=== PATIENT | female | born 1950 | race Caucasian/White ===

== ENCOUNTER 2020-09-06 10:04 | Outpatient (REF) | payer MEDICARE, SELFPAY | END 2020-09-06 10:05 | disposition home or self-care (01) | LOC: HO.LAB 10:04 | PROVIDERS: Visit Provider Internal Medicine | DX: Z20.828 Contact with and (suspected) exposure to other viral communicable diseases (principal) | CPT/HCPCS: U0003 ==

== ENCOUNTER 2020-11-15 10:16 | Outpatient (REF) | payer MEDICARE, SELFPAY | END 2020-11-15 10:17 | disposition home or self-care (01) | LOC: HO.LAB 10:16 | PROVIDERS: PCP Internal Medicine; Visit Provider Advanced Practice Midwife | DX: Z01.419 Encounter for gynecological examination (general) (routine) without abnormal findings (principal); Z80.3 Family history of malignant neoplasm of breast | CPT/HCPCS: 88305 ==

== ENCOUNTER → 2020-11-18 10:15 | Outpatient (BNVA) | payer MEDICARE, SELFPAY | PROVIDERS: Visit Provider Obstetrics & Gynecology | DX: Z01.419 Encounter for gynecological examination (general) (routine) without abnormal findings (principal) | CPT/HCPCS: 99212 ==

== ENCOUNTER 2020-12-13 18:27 | Emergency (ER) | payer MEDICARE, SELFPAY ==
--- NOTE | ~2020-12-13 | CT_ITS ---
EXAMINATION: CT HEAD WITHOUT CONTRAST CLINICAL INFORMATION: TIA COMPARISON: None TECHNIQUE: Contiguous axial imaging was performed from the skull base to vertex without intravenous administration of contrast. This CT examination was performed using dose optimization techniques as appropriate, variously including the following: *Automated exposure control *Adjustment of mA and/or kV according to patient size (this includes techniques or standardized protocols for targeted exams where dose is matched to indication/reason for exam; i.e. extremities or head) *Use of iterative reconstruction technique DLP: 556 mGy-cm FINDINGS: There is no evidence of acute intracranial hemorrhage or territorial infarction. No abnormal mass effect or midline shift is seen. Bai to white matter differentiation is well preserved. No extra-axial fluid collections are identified. The ventricles are normal in size. There is no abnormal attenuation within the brain parenchyma. The osseous structures and soft tissues are normal. The mastoid air cells and visualized portions of the paranasal sinuses are well aerated. CT/CT head/brain wo con IMPRESSION: No acute intracranial pathology.
--- NOTE | ~2020-12-13 | XR_ITS ---
EXAMINATION: XR CHEST CLINICAL INFORMATION: TIA COMPARISON: 02/03/2010 TECHNIQUE: Frontal view of the chest was obtained. FINDINGS: No significant abnormality is noted involving the heart, lungs or mediastinum. Degenerative changes are present in the left shoulder which appear increased when compared to 2009. XR/XR chest 1V IMPRESSION: No acute intrathoracic disease.
[2020-12-13 18:30] VITALS: BP 143/76; PULSE 83; RESP 18; TEMP 36.9; O2SAT 98; BMI 29.1
--- NOTE | 2020-12-13 18:55 | ECG_ITS ---
Test Reason : DIZZY Blood Pressure : / mmHG Vent. Rate : 073 BPM Atrial Rate : 073 BPM P-R Int : 196 ms QRS Dur : 092 ms QT Int : 380 ms P-R-T Axes : 038 -16 015 degrees QTc Int : 418 ms Normal sinus rhythm Normal ECG When compared with ECG of 04-MAY-2015 11:16, Borderline criteria for Inferior infarct are no longer Present Referred By: Kelly Lang Electronically Signed By:SUZAN RODRIGUEZ
--- NOTE | 2020-12-13 18:57 | ED.EYEPROB ---
HPI - Eye Problem General Chief complaint: Neuro Symptoms/Deficit Stated complaint: double vision Time Seen by Provider: 12/13/20 18:54 Source: patient Mode of arrival: ambulatory Limitations: no limitations History of Present Illness HPI Narrative: 70 years old female walked in after having 5 minutes of double vision only on her left eye, symptoms started about 3 hours ago, lasted for about 5 minutes, only affecting left eye, no symptoms now, patient felt slight headache around her left eye that also resolved now, nothing relieved her symptoms, nothing would worsen her symptoms. Patient has no symptoms now. Patient has been examined by an eye doctor for seeing spots on the left eye, reportedly by the patient was told nothing to worry about. Related Data Home Medications Medication Instructions Recorded Confirmed omeprazole magnesium 20 mg 20 mg PO DAILY 11/15/20 11/18/20 tablet,delayed release Allergies Allergy/AdvReac Type Severity Reaction Status Date / Time morphine [MORPHINE] AdvReac Intermediate VOMITING Verified 12/13/20 18:45 oxycodone [OXYCODONE] AdvReac Intermediate VOMITING Verified 12/13/20 18:45 Opioids - Morphine Analogues AdvReac Vomiting Verified 12/13/20 18:45 Review of Systems Review of Systems: All other systems are reviewed and are negative Constitutional: Reports as per HPI and Reports no additional constitutional complaints Eyes: Reports as per HPI and Reports no additional eye complaints Reports system reviewed and no additional complaints, except as documented Cardiovascular: Reports as per HPI and Reports no additional cardiovascular complaints Respiratory: Reports as per HPI and Reports no additional respiratory complaints Gastrointestinal: Reports as per HPI and Reports no additional gastrointestinal complaints Genitourinary: Reports no additional female genitourinary complaints Musculoskeletal: Reports no additional musculoskeletal complaints Skin/Breast: Reports system reviewed and no additional complaints, except as docu Psychiatric: Reports no additional psychiatric complaints Endocrine: Reports no additional endocrine complaints Hematologic/Lymphatic: Reports no additional hematologic/lymphatic complaints Allergic/Immunologic: Reports no additional allergic/immunologic complaints Reports system reviewed and no additional complaints, except as documented and Reports Abnormal speech present [facility] Past Medical History Medical History Acid reflux Surgical History H/O: hysterectomy History of bladder surgery History of hip replacement Hx of tubal ligation Family History Family History Mother Breast cancer Maternal Aunt Breast cancer Social History Social History Smoked in Last 30 Days: No Use of substances other than those prescribed or required for medical reasons: No Advance Directives: No Advance Directives Information Provided: No Physical Exam Vital Signs: Vital Signs: Last Vital Signs Temp 98.5 F 12/13/20 18:30 Pulse 83 12/13/20 18:30 Resp 18 12/13/20 18:30 BP 143/76 H 12/13/20 18:30 Pulse Ox 98 12/13/20 18:30 Body Mass Index 29.1 Vital signs have been reviewed as normal and appeared to be correct. Blood pressure in the high range. Heart rate normal. Respiration rate normal. Temperature normal. Oxygen saturation normal. Appearance: Alert. Oriented X3. No acute distress. Head: Normal external exam. Normocephalic. Atraumatic. No Atkins signs noted. No raccoon eyes noted Eyes: PERRLA. EOMI. Conjunctiva and sclera normal. Eyelids normal. ENT: EAC normal. TM's Normal. Pharynx normal. Uvula midline. Moist mucous membranes. No trismus noted. No drooling noted. No muffled voice noted. Neck: Normal inspection. Neck supple. FROM. No adenopathy. Thyroid Normal. No meningeal signs. No neck mass noted. CVS: Normal heart rate and rhythm. Heart sound normal. No murmurs noted. Pulses normal throughout. Respiratory: No respiratory distress. Painless inspiration. Breath sounds normal. No wheezes/rales/rhonchi noted. Chest nontender. No accessory muscle usage noted or decreased air movement noted. Abdomen: Soft and nontender. Bowel sounds normal in all 4 quadrants. No distention noted. No organomegaly noted. No visible injury noted. Back: No CVA tenderness. Full range of motion noted. Skin: Skin warm and dry. Normal skin color. Normal skin turgor. No rashes/lesions/lacerations noted. Extremities: No lower extremity edema. Extremities exhibit normal range of motion. Extremities nontender. Neuro: Oriented X 3. No motor deficit. No sensory deficit. Reflexes normal. Eyes: General: appearance normal, both eyes and all related structures (Visual acuity on the right 20/25, left 20/25.) Visual Escalante: normal visual escalante by confrontation Alignment and Position: alignment normal Periorbital: periorbital findings normal Eyelids: Yes eyelids normal Conjunctivae: conjunctivae normal Sclerae: sclerae normal Corneas: corneas normal Pupils: Equal, round and reactive pupils present and Pupils normal by confrontation EOM: EOMs intact bilaterally Direct Ophthalmoscopy: normal light reflex, no photophobia, no papilledema, fundi normal bilaterally and anterior chamber abnormal Neuro: Cranial nerves: Yes Equal, round and reactive pupils present Course Course Course Narrative: 70-year-old female presented after having 5 minutes of left thigh diplopia that is resolved, patient has unremarkable eye exam. Normal neuro exam, normal head CT, unremarkable labs. Patient was instructed to follow up with eye doctor. MDM - Eye Problem Lab Data Attestation: I reviewed the patient's lab results. Result diagrams: 12/13/20 19:17 12/13/20 19:17 Labs: Lab Results 12/13/20 12/13/20 12/13/20 Range/Units 19:17 19:17 19:17 WBC 9.2 (4.8-10.8) X10*3/uL RBC 5.12 (4.20-5.50) X10*6/uL Hgb 15.2 (12.0-16.0) g/dl Hct 46.1 (37-47) % MCV 90.0 (80-98) fL MCH 29.7 (27.0-33.0) pg MCHC 33.0 (31.0-35.0) g/dl RDW 12.6 (11.0-16.0) % Plt Count 244 (160-400) X10*3/uL MPV 9.7 (9.4-12.3) fL Immature Gran % (Auto) 0.3 (0.0-0.4) % Neut % (Auto) 74.8 H (45-73) % Lymph % (Auto) 18.0 L (20-40) % Freestone % (Auto) 6.1 (2-11) % Eos % (Auto) 0.5 (0-4) % Baso % (Auto) 0.3 (0-2) % Lymph # (Auto) 1.7 (1.2-4.9) X10*3/uL Freestone # (Auto) 0.6 (0.1-1.2) X10*3/uL Eos # (Auto) 0.1 (0.0-0.4) X10*3/uL Baso # (Auto) 0.0 (0.0-0.2) X10*3/uL Abs Immat Gran (auto) 0.03 (0.00-0.03) X10*3/uL Absolute Neuts (auto) 6.9 (2.0-8.3) X10*3/uL Absolute Nucleated RBC 0.000 (0.0-0.012) X10*3/uL Nucleated RBC % (auto) 0.0 (0.0-0.2) /100WBC Sodium 139 (135-145) mmol/L Potassium 4.2 (3.3-5.1) mmol/L Chloride 104 (96-108) mmol/L Carbon Dioxide 26 (22-29) mmol/L Anion Gap 13 (12-20) BUN 16 (9-16) mg/dL Creatinine 0.79 (0.5-1.4) mg/dL Estim Creat Clear Calc 70.9 Estimated GFR > 60 Random Glucose 98 (60-115) mg/dL Calcium 9.3 (8.4-10.2) mg/dL Troponin I High Sens < 3.5 (<3.5-17.0) ng/L Urine Color Urine Appearance Urine pH (5.0-8.0) Ur Specific [place] (1.005-1.025) Urine Protein (NEG-TRACE) MG/DL Urine Glucose (UA) (NEG) MG/DL Urine Ketones (NEG) MG/DL Urine Blood (NEG) Urine Nitrite (NEG) Ur Leukocyte Esterase (NEG) Urine RBC (0) /HPF Urine WBC (0-4) /HPF Ur Squamous Epith Cells /LPF Urine Bacteria /LPF 12/13/20 Range/Units 19:23 WBC (4.8-10.8) X10*3/uL RBC (4.20-5.50) X10*6/uL Hgb (12.0-16.0) g/dl Hct (37-47) % MCV (80-98) fL MCH (27.0-33.0) pg MCHC (31.0-35.0) g/dl RDW (11.0-16.0) % Plt Count (160-400) X10*3/uL MPV (9.4-12.3) fL Immature Gran % (Auto) (0.0-0.4) % Neut % (Auto) (45-73) % Lymph % (Auto) (20-40) % Freestone % (Auto) (2-11) % Eos % (Auto) (0-4) % Baso % (Auto) (0-2) % Lymph # (Auto) (1.2-4.9) X10*3/uL Fre[place] # (Auto) (0.1-1.2) X10*3/uL Eos # (Auto) (0.0-0.4) X10*3/uL Baso # (Auto) (0.0-0.2) X10*3/uL Abs Immat Gran (auto) (0.00-0.03) X10*3/uL Absolute Neuts (auto) (2.0-8.3) X10*3/uL Absolute Nucleated RBC (0.0-0.012) X10*3/uL Nucleated RBC % (auto) (0.0-0.2) /100WBC Sodium (135-145) mmol/L Potassium (3.3-5.1) mmol/L Chloride (96-108) mmol/L Carbon Dioxide (22-29) mmol/L Anion Gap (12-20) BUN (9-16) mg/dL Creatinine (0.5-1.4) mg/dL Estim Creat Clear Calc Estimated GFR Random Glucose (60-115) mg/dL Calcium (8.4-10.2) mg/dL Troponin I High Sens (<3.5-17.0) ng/L Urine Color YELLOW Urine Appearance CLEAR Urine pH 5.5 (5.0-8.0) Ur Specific [place] 1.020 (1.005-1.025) Urine Protein NEG (NEG-TRACE) MG/DL Urine Glucose (UA) NEG (NEG) MG/DL Urine Ketones NEG (NEG) MG/DL Urine Blood 1+ H (NEG) Urine Nitrite NEG (NEG) Ur Leukocyte Esterase 1+ H (NEG) Urine RBC 0-2 (0) /HPF Urine WBC 0-2 (0-4) /HPF Ur Squamous Epith Cells 1+ /LPF Urine Bacteria 1+ /LPF Imaging Data CT scan - head: Radiologist's impression: No acute pathology. Discharge Plan Discharge Clinical Impression: Diplopia Patient Disposition: Home, Self-Care Instructions: Diplopia (ED) Additional Instructions: See your eye doctor. Prescriptions: No Action omeprazole magnesium [Prilosec OTC] 20 mg tablet,delayed release (DR/EC) 20 mg PO DAILY RF: 0 Referrals: Hemal Suarez MD, DO [Primary Care Provider] - 2 days
--- NOTE | 2020-12-13 19:20 | PC.NURSE ---
ASSUMED CARE OF PT. PT RESTING IN STRETCHER. LABS DRAWN TO LAB. PT UP TO RESTROOM AMBULATORY WITH STEADY EVEN GAIT FOR URINE SAMPLE TO LAB. PT ALERT, RESPIRATIONS EASY, N/L. PT C/O HEADACHE AND DENIES VISION DIFFICULTY. PT AWAITING FOR VISUAL ACCUITY. WILL CONTINUE TO MONITOR PT.
[2020-12-13 19:26] LABS: MANUAL DIFF FLAG NO
[2020-12-13 19:27] LABS: Basophils Percent Auto 0.3 % (0-2); Eosinophils Absolute Auto 0.1 X10*3/uL (0.0-0.4); Eosinophils Percent Auto 0.5 % (0-4); Hematocrit 46.1 % (37-47); Hemoglobin 15.2 g/dl (12.0-16.0); Imm Gran Abs Auto 0.03 X10*3/uL (0.00-0.03); Imm Gran Pct Auto 0.3 % (0.0-0.4); Lymphocytes Absolute Auto 1.7 X10*3/uL (1.2-4.9); Mean Corpuscular Hemoglobin 29.7 pg (27.0-33.0); Mean Platelet Volume 9.7 fL (9.4-12.3); Monocytes Absolute Auto 0.6 X10*3/uL (0.1-1.2); Monocytes Percent Auto 6.1 % (2-11); Neutrophils Absolute Auto 6.9 X10*3/uL (2.0-8.3); Neutrophils Percent Auto 74.8 % (45-73); Platelet Count 244 X10*3/uL (160-400); Red Blood Count 5.12 X10*6/uL (4.20-5.50); Red Cell Distribution Width 12.6 % (11.0-16.0); White Blood Count 9.2 X10*3/uL (4.8-10.8)
[2020-12-13 19:32] LABS: Appearance Urine CLEAR; Color Urine YELLOW; Glucose Urine UA NEG (NEG); Leukocyte Esterase Urine 1+ (NEG); Nitrite Urine NEG (NEG); PH 5.5 (5.0-8.0); UACC Culture Trigger YES; Urine Blood 1+ (NEG); Urine Ketones NEG (NEG); Urine Protein NEG (NEG-TRACE)
[2020-12-13 19:38] LABS: Bacteria Urine 1+ /LPF; RBC Urine 0-2 /HPF (0); Squamous Epithelial Cell Urine 1+ /LPF; WBC Urine 0-2 /HPF (0-4)
[2020-12-13 19:47] LABS: Anion Gap 13 (12-20); Blood Urea Nitrogen 16 mg/dL (9-16); Calcium 9.3 mg/dL (8.4-10.2); Carbon Dioxide 26 mmol/L (22-29); Chloride 104 mmol/L (96-108); Creatinine Clr Calc Pharmacy 70.9; Estimated Glomerular Filt Rate > 60; Glucose Random 98 mg/dL (60-115); Potassium 4.2 mmol/L (3.3-5.1); Sodium 139 mmol/L (135-145)
[2020-12-13 19:55] LABS: Troponin-I High Sensitivity < 3.5 ng/L (<3.5-17.0)
== END 2020-12-13 20:57 | disposition home or self-care (01) ==
PROVIDERS: Emergency Provider Emergency Medicine; PCP Internal Medicine
DX: H53.2 Diplopia (principal); R51.9 Headache, unspecified; Z79.899 Other long term (current) drug therapy
CPT/HCPCS: 36415; 70450; 71045; 80048; 81001; 81003; 84484; 85025; 87086; 93005; 99284

== ENCOUNTER 2020-12-20 09:44 | Outpatient (REF) | payer MEDICARE, SELFPAY ==
--- NOTE | ~2020-12-20 | US_ITS ---
EXAMINATION: US EXTRACRANIAL CAROTID DUPLEX, BILATERAL CLINICAL INFORMATION: This is a 70-year-old female with diplopia. Carotid artery disease. COMPARISON: None TECHNIQUE: Real-time ultrasound and Doppler techniques (integrating B-mode 2-D vascular images, Doppler spectral analysis and color-flow Doppler imaging) were utilized to interrogate the extracranial carotid arteries, the vertebral arteries and proximal subclavian arteries bilaterally. The degree of stenosis is determined by criteria similar to NASCET. FINDINGS: Right Side: 1. There is minimal atherosclerotic plaque seen in the bifurcation/proximal ICA region. 2. The common carotid artery PSV proximally is 66 cm/s and distally 73 cm/s. 3. The proximal internal carotid artery velocities are 64 cm/s systolic and 16 cm/s diastolic. 4. The proximal external carotid artery PSV is 86 cm/s. 5. The vertebral artery shows antegrade flow. 6. The subclavian artery waveforms are normal. Left Side: 1. There is minimal atherosclerotic plaque seen in the bifurcation/proximal ICA region. 2. The common carotid artery PSV proximally is 160 cm/s and distally 85 cm/s. 3. The proximal internal carotid artery velocities are 60 cm/s systolic and 21 cm/s diastolic. 4. The proximal external carotid artery PSV is 102 cm/s. 5. The vertebral artery shows antegrade flow. 6. The subclavian artery waveforms are normal. US/US carotid duplex BI IMPRESSION: 1. RIGHT: Minimal, non-hemodynamically significant stenosis of the proximal right internal carotid artery corresponding to a 0-49% stenosis by velocity criteria. 2. LEFT: Minimal, non-hemodynamically significant stenosis of the proximal left internal carotid artery corresponding to a 0-49% stenosis by velocity criteria.
== END 2020-12-20 09:45 | disposition home or self-care (01) ==
LOC: HO.HMGCX 09:44
PROVIDERS: Visit Provider Internal Medicine
DX: H53.2 Diplopia (principal); R42 Dizziness and giddiness
CPT/HCPCS: 93880

== ENCOUNTER → 2021-01-20 09:19 | Outpatient (REF) | payer MEDICARE, SELFPAY ==
--- NOTE | 2021-01-20 09:30 | CA_ITS ---
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 Normal LV systolic function with grade 1 diastolic dysfunction 2. Normal cardiac valvular Doppler 3. Normal RV systolic pressure 4. No pericardial effusion Findings Procedure Information Contrast agent, definity, is being given per protocol without apparent complications. Left Ventricle Normal left ventricular size, thickness, and systolic function. The visually estimated ejection fraction is between 60-65%. Spectral Doppler is indicative of an impaired relaxation filling pattern. E/E prime ratio is <8, consistent with normal filling pressures. Evidence suggests grade I (mild) diastolic dysfunction. Right Ventricle Normal right ventricular cavity size and systolic function. Atria Both atria are normal in size. Interatrial shunt cannot be excluded. Aortic Valve The aortic valve structure and function is likely normal. There is no aortic valve stenosis. There is no aortic valve regurgitation. Mitral Valve Normal mitral valve structure and function. There is trace mitral valve regurgitation. There is no mitral valve stenosis. Pulmonic Valve The pulmonic valve was not well visualized. Tricuspid Valve Likely normal tricuspid valve structure and function. There is trace tricuspid valve regurgitation. The right ventricular systolic pressure is normal. The right ventricular systolic pressure is 23 mmHg. Normal right atrial pressure. There is no evidence of pulmonary hypertension. Great Vessels All visible segments of the aorta are normal in size. The pulmonary artery was not well visualized. Venous The inferior vena cava is normal in size and collapses greater than 50% with inspiration. Pericardium/Pleural There is no evidence of pericardial effusion. Prior Study Comparison No prior study available for comparison. Recommendations, Care & Conclusions Recommend contrast study to evaluate intracardiac shunting. Measurements 2D Linear Measurements Ao Root: 3.20 2.1-3.5 cm LVOT Diam: 2.20 3.0+(-)1.3 cm 2D Systolic Function EF 4C: 58.30 >55% EF 2C: 78.00 >55% Mitral Valve MV Pk E: 0.63 MV PK A: 0.74 MV Decel Time: 151.00 E/A: 0.80 E'Lateral: 8.12 E'Medial: 5.90 E/E' Med: 10.60 E/E' Lat: 7.70 PHT: 44.00 MVA PHT: 5.00 Decel Perkins: 4.13 Aortic Valve AoV Pk Ancelmo: 1.13 AoV Mn Ancelmo: 0.79 AoV VTI: 0.26 AoV Pk Grad: 5.00 Aov Mn Grad: 3.00 OPHELIA Cont.VTI: 2.65 LVOT LVOT Pk Ancelmo: 0.87 LVOT Mn Ancelmo: 0.58 LVOT VTI: 0.18 LVOT Pk Grad: 3.00 LVOT Mn Grad: 2.00 LVOT Diam: 2.20 LVOT Area: 3.80 Diastolic Function MV Pk E: 0.63 MV Pk A: 0.74 E/A: 0.80 E'Medial: 5.90 E/E' Med: 10.60 E' Laterial: 8.12 E/E' Lat: 7.70 Tricuspid Valve TR Pk Ancelmo: 2.21 TR Pk Grad: 20.00 RA Press: 3.00 RVSP: 23.00 Great Vessels Aorta Ao Root-2D: 3.20 2.0-3.7 cm Ao Asc: 3.20 2.1-3.4 cm Pulmonary Valve PV Pk Ancelmo: 0.88 Peak PV Grad: 3.00 Updated in Other Vendor System with Status of Final Ryan Vasquez MD electronically signed on 01/21/2021 3:37:59 PM with status of Final
== END ==
LOC: HO.CARD 09:19
PROVIDERS: PCP Internal Medicine; Visit Provider Internal Medicine
DX: H53.2 Diplopia (principal)
CPT/HCPCS: 93306; Q9957

== ENCOUNTER 2021-05-10 11:36 | Outpatient (REF) | payer MEDICARE, SELFPAY ==
--- NOTE | ~2021-05-10 | MM_ITS ---
EXAMINATION: MM SCREENING DIGITAL BREAST TOMOSYNTHESIS, BILATERAL CLINICAL INFORMATION: Screening. Asymptomatic. The lifetime risk of breast cancer based on the Tyrer-Cuzick Model is 9%. COMPARISON: Mammography: 05/04/2020, 02/16/2019, 02/04/2018, 11/07/2016 TECHNIQUE: Digital breast tomosynthesis is performed in both the craniocaudal and mediolateral oblique views along with computer-aided detection (CAD). Synthesized 2D images are generated from the tomosynthesis. FINDINGS: There are scattered areas of fibroglandular density (ACR BI-RADS breast composition Category b). There are no significant masses, abnormal calcifications, or other abnormalities. Parenchymal pattern is similar to prior studies. No developing density. The axilla and skin contours are unremarkable. MM/MM tomosynthesis screening BI IMPRESSION: No mammographic evidence of malignancy. ASSESSMENT: BI-RADS 1: Negative RECOMMENDATION: Routine annual mammography screening. This patient's information was entered into a reminder system with a target due date for their next mammogram.
== END 2021-05-10 11:37 | disposition home or self-care (01) ==
LOC: HO.MAMMO 11:36
PROVIDERS: PCP Internal Medicine; Visit Provider Internal Medicine
DX: Z12.31 Encounter for screening mammogram for malignant neoplasm of breast (principal)
CPT/HCPCS: 77063; 77067

== ENCOUNTER 2021-08-08 07:44 | Outpatient (REF) | payer MEDICARE, SELFPAY ==
[2021-08-08 11:52] LABS: MANUAL DIFF FLAG NO
[2021-08-08 11:59] LABS: Basophils Percent Auto 0.4 % (0-2); Eosinophils Absolute Auto 0.1 X10*3/uL (0.0-0.4); Eosinophils Percent Auto 1.8 % (0-4); Hematocrit 44.9 % (37-47); Hemoglobin 14.4 g/dl (12.0-16.0); Imm Gran Abs Auto 0.01 X10*3/uL (0.00-0.03); Imm Gran Pct Auto 0.2 % (0.0-0.4); Lymphocytes Absolute Auto 2.4 X10*3/uL (1.2-4.9); Lymphocytes Percent Auto 52.3 % (20-40); Mean Corpuscular HGB Conc 32.1 g/dl (31.0-35.0); Mean Corpuscular Hemoglobin 29.4 pg (27.0-33.0); Mean Corpuscular Volume 91.8 fL (80-98); Mean Platelet Volume 10.3 fL (9.4-12.3); Monocytes Absolute Auto 0.4 X10*3/uL (0.1-1.2); Monocytes Percent Auto 9.3 % (2-11); Neutrophils Absolute Auto 1.6 X10*3/uL (2.0-8.3); Platelet Count 277 X10*3/uL (160-400); Red Blood Count 4.89 X10*6/uL (4.20-5.50); Red Cell Distribution Width 13.2 % (11.0-16.0); White Blood Count 4.5 X10*3/uL (4.8-10.8)
[2021-08-08 12:19] LABS: Alanine Aminotransferase 13 U/L (0-31); Albumin Level 3.8 g/dL (3.5-5.0); Alkaline Phosphatase 46 U/L (39-117); Anion Gap 11 (12-20); Aspartate Amino Transferase 12 U/L (5-31); Bilirubin Total 0.7 mg/dL (0.0-1.0); Blood Urea Nitrogen 10 mg/dL (9-16); Calcium 8.8 mg/dL (8.4-10.2); Carbon Dioxide 27 mmol/L (22-29); Chloride 108 mmol/L (96-108); Cholesterol 188 mg/dL; Estimated Glomerular Filt Rate > 60; Glucose Fasting 89 mg/dL (60-99); HDL Cholesterol 59 mg/dL; LDL Cholesterol Calculated 113 mg/dl; Potassium 4.8 mmol/L (3.3-5.1); Sodium 141 mmol/L (135-145); Total Protein 6.3 g/dL (6.5-8.0); Triglycerides 81 mg/dL
[2021-08-08 12:42] LABS: Thyroid Stimulating Hormone 2.72 uIU/mL (0.32-4.0); Vitamin D 25-OH Total 21.8 ng/mL (>30)
== END 2021-08-08 07:45 | disposition home or self-care (01) ==
LOC: HO.HMGCLDS 07:44
PROVIDERS: PCP Internal Medicine; Visit Provider Internal Medicine
DX: K21.9 Gastro-esophageal reflux disease without esophagitis (principal); E78.00 Pure hypercholesterolemia, unspecified; E66.09 Other obesity due to excess calories; Z68.30 Body mass index [BMI] 30.0-30.9, adult
CPT/HCPCS: 36415; 80053; 80061; 82306; 84443; 85025

== ENCOUNTER 2021-10-05 15:18 | Outpatient (REF) | payer MEDICARE, SELFPAY | END 2021-10-05 15:19 | disposition home or self-care (01) | LOC: HO.LAB 15:18 | PROVIDERS: PCP Internal Medicine; Visit Provider Internal Medicine | DX: Z20.822 Contact with and (suspected) exposure to COVID-19 (principal) | CPT/HCPCS: C9803; U0003; U0005 ==

== ENCOUNTER 2021-12-06 08:10 | Outpatient (REF) | payer MEDICARE, SELFPAY ==
--- NOTE | ~2021-12-06 | XR_ITS ---
EXAMINATION: XR KNEE, RIGHT CLINICAL INFORMATION: Acute right knee pain COMPARISON: None TECHNIQUE: Four views of the right knee. FINDINGS: There is no evidence of acute fracture or dislocation of the right knee. No right knee effusion is appreciated. Medial lateral joint space compartments are maintained. There is spurring undersurface of the patella. There is a spur of the patella site of insertion of the quadriceps tendon. XR/XR knee RT 4V IMPRESSION: Patellofemoral joint degenerative change. No acute fracture or significant effusion.
== END 2021-12-06 08:11 | disposition home or self-care (01) ==
LOC: HO.HMGCX 08:10
PROVIDERS: Visit Provider Internal Medicine
DX: M25.561 Pain in right knee (principal)
CPT/HCPCS: 73564

== ENCOUNTER 2022-05-14 08:27 | Outpatient (REF) | payer MEDICARE, SELFPAY ==
--- NOTE | ~2022-05-14 | MM_ITS ---
EXAMINATION: MM SCREENING DIGITAL BREAST TOMOSYNTHESIS, BILATERAL CLINICAL INFORMATION: Screening. Asymptomatic. The lifetime risk of breast cancer based on the Tyrer-Cuzick Model is 7%. COMPARISON: Mammography: 05/10/2021, 05/04/2020, 02/16/2019 TECHNIQUE: Digital breast tomosynthesis is performed in both the craniocaudal and mediolateral oblique views along with computer-aided detection (CAD). Synthesized 2D images are generated from the tomosynthesis. FINDINGS: There are scattered areas of fibroglandular density (ACR BI-RADS breast composition Category b). There are no significant masses, abnormal calcifications, or other abnormalities. There is no significant change from prior studies. The axilla are unremarkable. MM/MM tomosynthesis screening BI IMPRESSION: No mammographic evidence of malignancy. ASSESSMENT: BI-RADS 1: Negative RECOMMENDATION: Routine annual mammography screening. This patient's information was entered into a reminder system with a target due date for their next mammogram.
== END 2022-05-14 08:28 | disposition home or self-care (01) ==
LOC: HO.MAMMO 08:27
PROVIDERS: Visit Provider Internal Medicine
DX: Z12.31 Encounter for screening mammogram for malignant neoplasm of breast (principal)
CPT/HCPCS: 77063; 77067

== ENCOUNTER 2022-06-14 11:41 | Outpatient (REF) | payer MEDICARE, SELFPAY ==
--- NOTE | ~2022-06-14 | XR_ITS ---
EXAMINATION: XR KNEE STANDING BILATERAL XR LEFT KNEE CLINICAL INFORMATION: Knee pain COMPARISON: Radiographs of the right knee from 12/06/2021 TECHNIQUE: AP standing view both knees Lateral and sunrise views of left knee FINDINGS: AP STANDING VIEW BOTH KNEES At the right knee, there are small marginal osteophytes at medial and lateral tibiofemoral compartments. Joint spaces are maintained. At the left knee, there is marginal osteophyte formation of the medial tibiofemoral compartment. The joint spaces are maintained. No suspicious bone lesion or fracture. LEFT KNEE: Small osteophytes at the patellofemoral joint. The patella is well-positioned within the trochlear groove. There appears to be mild narrowing of lateral patellofemoral joint space. No knee joint effusion. XR/XR knee LT 2V IMPRESSION: * Mild osteoarthritis of the patellofemoral and medial tibiofemoral compartments of the left knee. * Mild osteoarthritis of the visualized medial and lateral tibiofemoral compartments of the right knee.
--- NOTE | ~2022-06-14 | XR_ITS ---
EXAMINATION: XR PELVIS CLINICAL INFORMATION: Pain COMPARISON: 08/25/2015 TECHNIQUE: AP view of the pelvis. FINDINGS: No acute findings compared to 08/23/2015. Chronic moderate degenerative joint disease at the pubic symphysis (as manifest by subarticular sclerosis, the reticular cystic change and osteophyte formation). At the chronically degenerated left hip, there is mild narrowing of superior joint space and osteophyte formation. At the right hip, the prosthetic femoral head is well centered in the acetabular cup which exhibits normal lateral version. No osteolysis or fracture around the hardware. The degenerated lumbar spine is partially included in the [id number]. XR/XR pelvis 1-2V IMPRESSION: * No new radiographic abnormalities compared to 08/25/2015. * No evidence of complications involving the right total hip arthroplasty hardware. No hardware loosening or periprosthetic fracture. 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
--- NOTE | ~2022-06-14 | XR_ITS ---
EXAMINATION: XR KNEE STANDING BILATERAL XR LEFT KNEE CLINICAL INFORMATION: Knee pain COMPARISON: Radiographs of the right knee from 12/06/2021 TECHNIQUE: AP standing view both knees Lateral and sunrise views of left knee FINDINGS: AP STANDING VIEW BOTH KNEES At the right knee, there are small marginal osteophytes at medial and lateral tibiofemoral compartments. Joint spaces are maintained. At the left knee, there is marginal osteophyte formation of the medial tibiofemoral compartment. The joint spaces are maintained. No suspicious bone lesion or fracture. LEFT KNEE: Small osteophytes at the patellofemoral joint. The patella is well-positioned within the trochlear groove. There appears to be mild narrowing of lateral patellofemoral joint space. No knee joint effusion. XR/XR knee standing BI IMPRESSION: * Mild osteoarthritis of the patellofemoral and medial tibiofemoral compartments of the left knee. * Mild osteoarthritis of the visualized medial and lateral tibiofemoral compartments of the right knee.
== END 2022-06-14 11:42 | disposition home or self-care (01) ==
LOC: HO.HOSX 11:41
PROVIDERS: Visit Provider Orthopaedic Surgery
DX: M16.12 Unilateral primary osteoarthritis, left hip (principal); M25.562 Pain in left knee
CPT/HCPCS: 72170; 73560; 73565; 99202

== ENCOUNTER 2022-07-03 06:13 | Outpatient (REF) | payer MEDICARE, SELFPAY | END 2022-07-03 06:14 | disposition home or self-care (01) | LOC: HO.RADIR 06:13 | PROVIDERS: Visit Provider Anesthesiology | DX: M16.12 Unilateral primary osteoarthritis, left hip (principal); G89.29 Other chronic pain; M19.90 Unspecified osteoarthritis, unspecified site | CPT/HCPCS: 99202 ==

== ENCOUNTER 2022-08-06 07:50 | Outpatient (REF) | payer MEDICARE, SELFPAY ==
[2022-08-06 11:16] LABS: MANUAL DIFF FLAG NO
[2022-08-06 11:33] LABS: Basophils Percent Auto 0.4 % (0-2); Eosinophils Absolute Auto 0.1 X10*3/uL (0.0-0.4); Eosinophils Percent Auto 1.8 % (0-4); Hematocrit 45.8 % (37.0-47.0); Hemoglobin 14.7 g/dl (12.0-16.0); Imm Gran Abs Auto 0.01 X10*3/uL (0.00-0.03); Imm Gran Pct Auto 0.2 % (0.0-0.4); Lymphocytes Absolute Auto 2.3 X10*3/uL (1.2-4.9); Mean Corpuscular HGB Conc 32.1 g/dl (31.0-35.0); Mean Corpuscular Hemoglobin 29.1 pg (27.0-33.0); Mean Corpuscular Volume 90.7 fL (80.0-98.0); Mean Platelet Volume 10.2 fL (9.4-12.3); Monocytes Absolute Auto 0.4 X10*3/uL (0.1-1.2); Monocytes Percent Auto 9.6 % (2-11); Neutrophils Absolute Auto 1.7 x10*3/uL (2.0-8.3); Platelet Count 282 X10*3/uL (160-400); Red Blood Count 5.05 X10*6/uL (4.20-5.50); Red Cell Distribution Width 12.9 % (11.0-16.0); White Blood Count 4.5 X10*3/uL (4.8-10.8)
[2022-08-06 12:06] LABS: Alanine Aminotransferase 15 U/L (0-31); Albumin Level 4.1 g/dL (3.5-5.0); Alkaline Phosphatase 49 U/L (39-117); Anion Gap 15 (12-20); Aspartate Amino Transferase 14 U/L (5-31); Bilirubin Total 0.5 mg/dL (0.0-1.0); Blood Urea Nitrogen 18 mg/dL (9-16); Calcium 9.3 mg/dL (8.4-10.2); Carbon Dioxide 25 mmol/L (22-29); Chloride 106 mmol/L (96-108); Cholesterol 214 mg/dL; Estimated Glomerular Filt Rate > 60; Glucose Fasting 92 mg/dL (60-99); HDL Cholesterol 65 mg/dL; LDL Cholesterol Calculated 128 mg/dl; Potassium 4.6 mmol/L (3.3-5.1); Sodium 141 mmol/L (135-145); Total Protein 6.6 g/dL (6.5-8.0); Triglycerides 107 mg/dL
[2022-08-06 12:14] LABS: Thyroid Stimulating Hormone 2.82 uIU/mL (0.32-4.0)
== END 2022-08-06 07:51 | disposition home or self-care (01) ==
LOC: HO.HMGCLDS 07:50
PROVIDERS: PCP Internal Medicine; Visit Provider Internal Medicine
DX: Z00.00 Encounter for general adult medical examination without abnormal findings (principal); K21.9 Gastro-esophageal reflux disease without esophagitis; E66.09 Other obesity due to excess calories; E78.00 Pure hypercholesterolemia, unspecified
CPT/HCPCS: 36415; 80053; 80061; 82306; 84443; 85025

== ENCOUNTER 2022-11-16 08:33 | Outpatient (REF) | payer MEDICARE, OTHER, SELFPAY ==
[2022-11-17 11:21] LABS: BV Int Neg Control Negative (Negative); BV Int Pos Control Positive (Positive)
== END 2022-11-16 08:34 | disposition home or self-care (01) ==
LOC: HO.LNP 08:33
PROVIDERS: PCP Internal Medicine; Visit Provider Advanced Practice Midwife
DX: Z01.411 Encounter for gynecological examination (general) (routine) with abnormal findings (principal); N89.8 Other specified noninflammatory disorders of vagina; Z80.3 Family history of malignant neoplasm of breast
CPT/HCPCS: 87480; 87510; 87660; 99212

== ENCOUNTER 2023-05-16 07:39 | Outpatient (REF) | payer MEDICARE, OTHER, SELFPAY ==
--- NOTE | ~2023-05-16 | MM_ITS ---
EXAMINATION: MM SCREENING DIGITAL BREAST TOMOSYNTHESIS, BILATERAL CLINICAL INFORMATION: Screening. Asymptomatic. The lifetime risk of breast cancer based on the Tyrer-Cuzick Model is 7.5%. COMPARISON: Mammography: This study is compared with prior exams dating back to TECHNIQUE: Digital breast tomosynthesis is performed in both the craniocaudal and mediolateral oblique views along with computer-aided detection (CAD). Synthesized 2D images are generated from the tomosynthesis. FINDINGS: There are scattered areas of fibroglandular density (ACR BI-RADS breast composition Category b). There are no significant masses, abnormal calcifications, or other abnormalities. MM/MM tomosynthesis screening BI IMPRESSION: No mammographic evidence of malignancy. ASSESSMENT: BI-RADS BI-RADS 1 - Negative RECOMMENDATION: Routine annual mammography screening. 1 year F/U This examination should not preclude the clinical evaluation of a suspicious palpable abnormality. This patient's information was entered into a reminder system with a target due date for their next mammogram.
== END 2023-05-16 07:40 | disposition home or self-care (01) ==
LOC: HO.MAMMO 07:39
PROVIDERS: PCP Internal Medicine; Visit Provider Internal Medicine
DX: Z12.31 Encounter for screening mammogram for malignant neoplasm of breast (principal)
CPT/HCPCS: 77063; 77067

== ENCOUNTER → 2023-05-16 08:00 | Outpatient (BNV) | payer MEDICARE, SELFPAY | PROVIDERS: PCP Internal Medicine; Visit Provider Radiology Diagnostic Radiology | DX: Z12.31 Encounter for screening mammogram for malignant neoplasm of breast (principal) | CPT/HCPCS: 77063; 77067 ==

== ENCOUNTER 2023-08-09 07:37 | Outpatient (REF) | payer MEDICARE, OTHER, SELFPAY | END 2023-08-09 07:38 | disposition home or self-care (01) | LOC: HO.HMGCLDS 07:37 | PROVIDERS: PCP Internal Medicine; Visit Provider Internal Medicine | DX: Z00.00 Encounter for general adult medical examination without abnormal findings (principal); K21.9 Gastro-esophageal reflux disease without esophagitis; E66.3 Overweight; E78.00 Pure hypercholesterolemia, unspecified | CPT/HCPCS: 36415; 80053; 80061; 84443; 85025 ==

== ENCOUNTER 2023-08-30 10:00 | Outpatient (RCR) | payer MEDICARE, OTHER, SELFPAY ==
--- NOTE | 2023-07-16 16:26 | MHC.PT.EP ---
[facility] [place] Office [place] Office [place] Office [address] Aliza Kendall [address] [phone] F: [phone] F: [phone] F: [phone] F: [phone] Physical Therapy Plan of Care Date of Evaluation: 07/16/23 Date of Surgery: NA Diagnosis: LUMBAR RADICULOPATHY Assessment: Pt IS 73 YO F REFERRED TO PT FROM DR MCRAE WITH LUMBAR RADICULOPATHY. PRESENTS WITHOUT PAIN TODAY. REPORTS ONLY GETS R GLUT AND LE SXS WITH SIT>30/45 MIN IN CAR, GOES AWAY WITH STAND/WALK. PRESENTS WITH GOOD TRUNK AND LE FLEXIBILITY. DECREASED R HIP STRENGTH. HX OF R THR WITH REVISION FOR DISLOCATION. GOOD PT CANDIDATE TO ADDRESS THESE ISSUES Frequency and Duration: The patient will be seen 1X/WK X 4 WKS Short Term Goals: 1. INCREASED AWARENESS BACK CARE AND POSTURE 2. Pt TO PERF 2-3 TASKS WITH PROPER BODY MECH [facility] Goals: 1. LESS R LE SXS WITH PROLONGED SIT 2. I HEP WITH DC EX PROG Treatment Plan: Modalities to reduce pain, spasms and effusion. Manual therapy to restore motion and function. Therapeutic exercise to improve strength and flexibility. Neuromuscular re-education for posture and balance. Therapeutic activities to return to functional activities of daily living. Electronically signed by: BOB TIWARI PT Please sign and return to therapist. Thank you for your referral.
--- NOTE | 2023-08-30 11:29 | MHC.PT.DC ---
[facility] [place] Office [place] Office [place] Office [address] Aliza Kendall 140 [facility] [phone] F: [phone] F: [phone] F: [phone] F: [phone] Physical Therapy Discharge Report Diagnosis: LUMBAR RADICULOPATHY Date of Surgery: NA Date of Evaluation: 07/16/23 Date of Discharge: 08/30/23 Treatments to Date: 4 Cancellations to Date: No Shows to Date: Discharge Status: Achieved Goals Improved Function Independent with HEP Discharge Summary: HAS MET PT GOALS Electronically signed by: BOB TIWARI PT Please sign and return to therapist. Thank you for your referral.
== END 2023-08-30 11:30 | disposition home or self-care (01) ==
LOC: HO.PT 10:00
PROVIDERS: PCP Internal Medicine; Visit Provider Psychiatry & Neurology Neurology
DX: M54.16 Radiculopathy, lumbar region (principal)
CPT/HCPCS: 97110; 97161; 97530; 97535

== ENCOUNTER 2024-01-13 11:35 | Outpatient (REF) | payer MEDICARE, OTHER, SELFPAY ==
--- NOTE | ~2024-01-13 | XR_ITS ---
EXAMINATION: XR PELVIS CLINICAL INFORMATION: Hip pain COMPARISON: None available. TECHNIQUE: AP view of the pelvis. FINDINGS: Bony pelvis is intact. Right total hip replacement prosthetic components are in satisfactory position without evidence of loosening. Severe left hip joint narrowing. Degenerative changes lower lumbar spine. SI joints within normal limits. 3 cm oval density identified to the right of the L4 vertebral body. Pelvic phleboliths. XR/XR pelvis 1-2V IMPRESSION: Advanced degenerative change left hip. Right total hip replacement. Indeterminate 3 cm density adjacent to L4.
== END 2024-01-13 11:36 | disposition home or self-care (01) ==
LOC: HO.HOSX 11:35
PROVIDERS: Visit Provider Orthopaedic Surgery
DX: M16.12 Unilateral primary osteoarthritis, left hip (principal); Z96.641 Presence of right artificial hip joint
CPT/HCPCS: 72170; 99212

== ENCOUNTER 2024-01-13 12:15 | Outpatient (AMB) | payer MEDICARE, SELFPAY ==
--- NOTE | 2024-01-13 12:31 | MHC.OFFVIS ---
Intake Intake Visit Reasons: OV-Left hip pain-discuss surgery? seen 06/14/22 Intake Note: Xochilt is a 72 year old female who presents today with complaints of left hip pain injection done with pain mgmt on 11/05/23. hx of right hip replacement 05/24/2015 NE. Patient reports that the injection is intermittently helpful, some days are better than others. She was taking Ibuprofen 800mg regularly which has helped. She presents today to talk about possible Arthroplasty. Allergies morphine [MORPHINE] Adverse Reaction (Intermediate, Verified 01/13/24 12:39) VOMITING oxycodone [OXYCODONE] Adverse Reaction (Intermediate, Verified 01/13/24 12:39) VOMITING Opioids - Morphine Analogues Adverse Reaction (Verified 01/13/24 12:39) Vomiting HPI OV-Left hip pain-discuss surgery? seen 06/14/22 HPI Details Xochilt is a 72 year old female who presents today with complaints of left hip pain injection done with pain mgmt on 11/05/23. hx of right hip replacement 05/24/2015 [place]. Patient reports that the injection is intermittently helpful, some days are better than others. She was taking Ibuprofen 800mg regularly which has helped. She presents today to talk about possible Arthroplasty. She has difficulty with daily activities. She is difficulty standing from a seated position getting into and out of a car and bed. She had a right hip replacement proximally he years ago and this feels very similar to how that felt. Her imaging demonstrates moderate left hip osteoarthritis. 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 Resp Other: No audible wheezing Effort & Inspection: normal respiratory effort Cardio Other: Radial pulse palpable with no rythmic abnormalities Back/Spine/Pelvis Cervical Spine: normal cervical lordosis Skin General skin exam: no rashes or lesions noted Neuro General: no focal motor deficits Extrem Other: Positive gait antalgia Positive impingement test on the left Positive [place]inchfield on the left Psych Appearance: grossly normal and well kempt Mental Status: mental status grossly normal Speech and movement: Normal speech and movement present Affect: normal affect Attitude: cooperative Results Reviewed Results Reviewed: I personally reviewed relevant radiographs. Advanced degenerative change left hip Right total hip replacement Assessment & Plan Assessment & Plan (1) Osteoarthritis of left hip: Code(s): M16.12 - Unilateral primary osteoarthritis, left hip Plan: This is a 74-year-old woman with several years of worsening left hip pain. She is tried ibuprofen, activity modification but continues to be unable to engage in meaningful daily activities without pain. She feels quality of her life is diminished. I have spoken with her about this in the past and she feels it is gotten to the point where it is no longer bearable. He certainly is walking very poorly and his marked pain with clinical exam. I recommend left hip arthroplasty. I discussed this with her in detail as well as the risks, benefits and alternatives including, but not limited to infection, pain, dislocation, need for further surgery as well as medical complications associated with surgery. She expressed understanding and we will proceed forward accordingly. Orders: Orders XR pelvis 1-2V 01/13/24 M25.559 - Pain in unspecified hip Coding Level of Care Code Est Pt Level 4 (07227) Diagnoses Osteoarthritis of left hip M16.12
== END 2024-01-13 15:11 | disposition home or self-care (01) ==
PROVIDERS: PCP Internal Medicine; Visit Provider Orthopaedic Surgery
DX: M16.12 Unilateral primary osteoarthritis, left hip (principal)
CPT/HCPCS: 99214

== ENCOUNTER → 2024-02-28 06:55 | Outpatient (REF) | payer MEDICARE, MEDICAID, SELFPAY ==
--- NOTE | 2024-02-28 07:04 | ECG_ITS ---
Test Reason : M16.12 Blood Pressure : / mmHG Vent. Rate : 067 BPM Atrial Rate : 067 BPM P-R Int : 200 ms QRS Dur : 088 ms QT Int : 384 ms P-R-T Axes : 056 006 028 degrees QTc Int : 405 ms Normal sinus rhythm Cannot rule out Anterior infarct , age undetermined Abnormal ECG When compared with ECG of 13-DEC-2020 19:40, Nonspecific T wave abnormality has replaced inverted T waves in Inferior leads Referred By: Hemal Suarez Electronically Signed By:RAQUEL BARBER MD
[2024-02-28 07:06] LABS: MANUAL DIFF FLAG NO
[2024-02-28 07:42] LABS: Basophils Percent Auto 0.4 % (0-2); Eosinophils Absolute Auto 0.1 X10*3/uL (0.0-0.4); Hematocrit 45.1 % (37.0-47.0); Hemoglobin 14.7 g/dl (12.0-16.0); Imm Gran Abs Auto 0.01 X10*3/uL (0.00-0.03); Imm Gran Pct Auto 0.2 % (0.0-0.4); Lymphocytes Absolute Auto 3.1 X10*3/uL (1.2-4.9); Lymphocytes Percent Auto 55.1 % (20-40); Mean Corpuscular HGB Conc 32.6 g/dl (31.0-35.0); Mean Corpuscular Hemoglobin 29.9 pg (27.0-33.0); Mean Corpuscular Volume 91.9 fL (80.0-98.0); Mean Platelet Volume 9.9 fL (9.4-12.3); Monocytes Absolute Auto 0.6 X10*3/uL (0.1-1.2); Monocytes Percent Auto 9.9 % (2-11); Neutrophils Absolute Auto 1.8 x10*3/uL (2.0-8.3); Neutrophils Percent Auto 32.4 % (45-73); Platelet Count 282 X10*3/uL (160-400); Red Blood Count 4.91 X10*6/uL (4.20-5.50); Red Cell Distribution Width 12.7 % (11.0-16.0); White Blood Count 5.5 X10*3/uL (4.8-10.8)
[2024-02-28 08:11] LABS: Alanine Aminotransferase 10 U/L (0-31); Albumin Level 4.1 g/dL (3.5-5.0); Alkaline Phosphatase 44 U/L (39-117); Anion Gap 13 (12-20); Aspartate Amino Transferase 13 U/L (5-31); Bilirubin Direct 0.2 mg/dL (0.0-0.5); Bilirubin Total 0.5 mg/dL (0.0-1.0); Blood Urea Nitrogen 14 mg/dL (9-16); Calcium 9.2 mg/dL (8.4-10.2); Carbon Dioxide 26 mmol/L (22-29); Chloride 108 mmol/L (96-108); Estimated Glomerular Filt Rate > 60; Glucose Random 94 mg/dL (60-115); Potassium 4.5 mmol/L (3.3-5.1); Sodium 142 mmol/L (135-145); Total Protein 6.9 g/dL (6.5-8.0)
== END ==
LOC: HO.CARD 06:55
PROVIDERS: PCP Internal Medicine; Visit Provider Internal Medicine
DX: M16.12 Unilateral primary osteoarthritis, left hip (principal); K21.9 Gastro-esophageal reflux disease without esophagitis
CPT/HCPCS: 36415; 80048; 80076; 85025; 93005

== ENCOUNTER → 2024-02-28 07:04 | Outpatient (BNV) | payer MEDICARE, MEDICAID, SELFPAY | PROVIDERS: PCP Internal Medicine; Visit Provider Internal Medicine Cardiovascular Disease | DX: R94.31 Abnormal electrocardiogram [ECG] [EKG] (principal) | CPT/HCPCS: 93010 ==

== ENCOUNTER 2024-03-12 09:23 | Outpatient (REF) | payer MEDICARE, MEDICAID, SELFPAY ==
--- NOTE | ~2024-03-12 | XR_ITS ---
EXAMINATION: XR HIP, LEFT CLINICAL INFORMATION: Pain COMPARISON: 01/13/2024 TECHNIQUE: Three views of the left hip. FINDINGS: No acute fracture or dislocation. Severe degenerative changes of the left hip joint with joint space narrowing, subchondral cystic change and remodeling of the femoral head. Status post right total hip arthroplasty. XR/XR hip LT min 2V IMPRESSION: No acute fracture or dislocation. Severe degenerative changes of the left hip joint.
== END 2024-03-12 09:24 | disposition home or self-care (01) ==
LOC: HO.HOSX 09:23
PROVIDERS: Visit Provider Physician Assistant
DX: Z01.810 Encounter for preprocedural cardiovascular examination (principal); Z01.818 Encounter for other preprocedural examination; M16.12 Unilateral primary osteoarthritis, left hip
CPT/HCPCS: 73502; 99202; 99212

== ENCOUNTER 2024-03-12 12:58 | Outpatient (AMB) | payer MEDICARE, MEDICAID, SELFPAY ==
--- NOTE | 2024-03-12 13:19 | MHC.OFFVIS ---
Intake Visit Reasons: Pre-Op: L ANABELLA w/NE 03/17/24 Intake Note: Xochilt a 74 year old female who presents today for a preoperative visit left ANABELLA NE, DOI 03/17/24. Pain management agreement reviewed and signed. Allergies morphine [MORPHINE] Adverse Reaction (Intermediate, Verified 03/12/24 13:22) VOMITING oxycodone [OXYCODONE] Adverse Reaction (Intermediate, Verified 03/12/24 13:22) VOMITING Opioids - Morphine Analogues Adverse Reaction (Verified 03/12/24 13:22) Vomiting Medication List - Last Reconciled 03/12/24 by Nicole Hansen PA-C calcium carbonate 500 mg PO DAILY multivitamin 1 tab PO DAILY omeprazole magnesium (Prilosec OTC) 20 mg PO DAILY [Raised toilet seat As directed NS] walker Folding Front wheeled walker HPI Comments Details: Ms Chan presents to the office today for preop visit. She is scheduled for left total hip arthroplasty with Dr. Morgan. She continues to have ongoing pain and difficulty with ambulation in the left hip, which is affecting her quality of life; therefore, she has elected to move forward with surgery. [facility] Medical History (Updated 03/12/24 @ 15:13 by Raymundo Zhang MD) Back pain Arthritis Hiatal hernia Numbness Acid reflux Surgical History H/O colonoscopy History of hip surgery History of hip replacement Hx of tubal ligation H/O: hysterectomy History of bladder surgery Family History Mother Breast cancer HTN (hypertension) Maternal Aunt Breast cancer Son Diabetes Social History Household Members: None Housing: Apartment Are you a primary home care assistant to a significant other at home: No Do you presently have visiting nurse or other home services: No Alcohol intake: never Patient Tobacco Use Status: Never used Tobacco Current occupational status: employed 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 Sexual orientation: Straight/Heterosexual Gender identity: Female Review of Systems Const All systems reviewed & are unremarkable except as noted in HPI and below Physical Exam Const General: cooperative and no acute distress Orientation/consciousness: patient oriented x3 HEENT Head: Yes normal to inspection, Yes normocephalic and Yes atraumatic Eyes General: appearance normal, both eyes and all related structures Neck Neck: Yes normal visual inspection and Yes no lymphadenopathy Resp Effort & Inspection: normal respiratory effort and able to speak in complete sentences Cardio Rate: regular rate Peripheral pulses: Peripheral pulses 2+ throughout GI Inspection: Yes normal to inspection Palpation (GI): Soft to palpation Skin General skin exam: no rashes or lesions noted Neuro General: patient oriented x3 Extrem Other: Left hip: Skin is normal to inspection. No open wound or abrasions. She has pain with ROM of hip and hip flexion. NVI. Psych Appearance: grossly normal Mental Status: mental status grossly normal Assessment & Plan Assessment & Plan (1) Osteoarthritis of left hip: Code(s): M16.12 - Unilateral primary osteoarthritis, left hip Category: Medical Qualifiers: Osteoarthritis type: primary Qualified Code(s): M16.12 - Unilateral primary osteoarthritis, left hip Plan: I discussed in detail the procedure and what to expect pre and post operatively. We discussed the risks, benefits and alternatives to the surgery as well as the rehabilitation course. The risks; which include, but are not limited to infection, bleeding, nerve injury, ongoing pain, swelling, and stiffness, perioperative risk of injury to bones and soft tissues, and blood clots. I?ve answered all questions and with their understanding they have consented to move forward with Left total hip arthroplasty with Dr. Morgan opiate sensitive - does not want opiates when d/c from hospital h/o dislocation RT ANABELLA Denies h/o blood clot, no h/o cancer, no smoking, no prior ac tx--> ok to take ASA 325mg tabs po Orders: Orders XR hip LT min 2V 03/12/24 M25.552 - Pain in left hip Patient Instructions: Scribed for Nicole Hansen PA-C, by Lorenzo Bermudez director of graduate medical education, on 03/12/2024 at 1:15 PM KARY. Nicole Coelho PA-C, have personally reviewed and agree with the information entered by the scribe. Coding Level of Care Code Est Pt Level 3 (94342) Diagnoses Primary osteoarthritis of left hip M16.12 Osteoarthritis type: primary
== END 2024-03-12 13:47 | disposition home or self-care (01) ==
PROVIDERS: PCP Internal Medicine; Visit Provider Physician Assistant
DX: M16.12 Unilateral primary osteoarthritis, left hip (principal)
CPT/HCPCS: 99024

== ENCOUNTER 2024-03-12 13:54 | Outpatient (AMB) | payer MEDICARE, MEDICAID, SELFPAY ==
[2024-03-12 14:22] VITALS: BP 110/64; PULSE 74; BMI 28.3
--- NOTE | 2024-03-12 14:22 | MHC.OFFVIS ---
Vital Signs 03/12/24 14:22 Height 5 ft 5 in Weight 170 lb 3.15 oz BMI 28.3 BP 110/64 Blood Pressure Location Lt brachial Position Sitting Pulse 74 Intake Visit Reasons: Preop/ Orhtopedics/abn ekg surg 03/17 Assistant Director Required: No Accompanied by: Self / Same As Patient Allergies morphine [MORPHINE] Adverse Reaction (Intermediate, Verified 03/12/24 13:22) VOMITING oxycodone [OXYCODONE] Adverse Reaction (Intermediate, Verified 03/12/24 13:22) VOMITING Opioids - Morphine Analogues Adverse Reaction (Verified 03/12/24 13:22) Vomiting Medication List - Last Reconciled 03/12/24 by Raymundo Zhang MD calcium carbonate 500 mg PO DAILY multivitamin 1 tab PO DAILY omeprazole magnesium (Prilosec OTC) 20 mg PO DAILY [Raised toilet seat As directed NS] walker Folding Front wheeled walker HPI Comments Details: Xochilt is here for consultation regarding preoperative risk stratification for hip surgery. It is due to be done in the next couple of days. She states that she has never had any cardiac issues like coronary artery disease or myocardial infarction or cardiomyopathy or in fact any other cardiac issues. She has never had any anginal-type symptoms of shortness of breath. Some limitation activity due to hip pain but otherwise doing quite well. [facility] Medical History (Updated 03/12/24 @ 15:13 by Raymundo Zhang MD) Back pain Arthritis Hiatal hernia Numbness Acid reflux Surgical History H/O colonoscopy History of hip surgery History of hip replacement Hx of tubal ligation H/O: hysterectomy History of bladder surgery Family History Mother Breast cancer HTN (hypertension) Maternal Aunt Breast cancer Son Diabetes Social History Household Members: None Housing: Apartment Are you a primary career placement specialist to a significant other at home: No Do you presently have visiting nurse or other home services: No Alcohol intake: never Patient Tobacco Use Status: Never used Tobacco Current occupational status: employed 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 Sexual orientation: Straight/Heterosexual Gender identity: Female Review of Systems Const Denies chills, Denies fatigue, Denies fever(s), Denies frequent falls, Denies weakness, Denies weight gain and Denies weight loss ENT Denies dizziness Card Denies chest pain, Denies leg edema, Denies lightheadedness, Denies palpitations, Denies dyspnea and Denies dyspnea on exertion Resp Denies cough, Denies dyspnea and Denies dyspnea on exertion GI Denies hematochezia Musc Denies abnormal gait, Denies muscle weakness, Denies numbness, Denies radiating pain into limb and Denies tingling Neuro Denies abnormal gait, Denies dizziness, Denies frequent falls, Denies numbness, Denies tingling and Denies weakness Endo Denies fatigue and Denies palpitations Physical Exam Vital Signs: Last Vital Signs Pulse 74 03/12/24 14:22 BP 110/64 03/12/24 14:22 BMI result Body Mass Index 28.3 Const General: comfortable and no acute distress Orientation/consciousness: patient oriented x3 HEENT Other: Unremarkable Head: Yes normal to inspection Neck Neck: Yes normal visual inspection Chest Chest palpation & inspection: normal inspection of the chest Resp Auscultation: clear to auscultation bilaterally Cardio Palpation: normal PMI Heart sounds: S1 normal heart sound present, S2 normal heart sound present, no gallops, no murmurs and no rubs GI Palpation (GI): Soft to palpation Back/Spine/Pelvis Other: unremarkable Skin General skin exam: no rashes or lesions noted Neuro General: patient oriented x3 Extrem General: Yes normal to inspection Psych Mental Status: mental status grossly normal Assessment & Plan Assessment & Plan (1) Preoperative cardiovascular examination: Code(s): Z01.810 - Encounter for preprocedural cardiovascular examination Category: Medical Plan In the EKG from last week, underlying rhythm is sinus at 67/Min; poor R-wave progression V1 to V3 most likely from her body habitus and lead placement. Top normal [place] and normal corrected QT. Prior echocardiogram 2020-LVEF 60-65%. Mild diastolic dysfunction but otherwise unremarkable. Overall, in the absence of any symptoms or prior cardiac history, doubt significance for EKG findings. We discussed this in detail and decided that she can proceed with surgery as planned. Low cardiac risk. Coding Level of Care Code New Pt Level 3 (11954) Diagnoses Preoperative cardiovascular examination Z01.810
== END 2024-03-12 15:10 | disposition home or self-care (01) ==
PROVIDERS: PCP Internal Medicine; Visit Provider Internal Medicine
DX: Z01.810 Encounter for preprocedural cardiovascular examination (principal)
CPT/HCPCS: 99203

== ENCOUNTER 2024-03-17 05:51 | Inpatient (IN) | payer MEDICARE, OTHER, SELFPAY ==
[2024-03-09 12:22] VITALS: BP 138/65; PULSE 74; RESP 18; O2SAT 97; BMI 28.3
--- NOTE | 2024-03-09 13:02 | P.CONAN_ITS ---
Documented by User: Sherri Avila NP 03/16/24 08:20 HPI - Anesthesia Eval Consult details Narrative: 74yo F for Left Hip Total Replacement N/V with opiates. Possibly with GA PMFSH Active Problems Active Problems: All Active Problems Osteoarthritis of left hip (Acute) Osteoarthritis (Acute) Chronic left hip pain (Acute) Arthritis of left hip (Acute) Normal vaginal exam (Acute) FH: breast cancer in first degree relative (Acute) Well woman exam with routine gynecological exam (Acute) Past Medical History Medical History Back pain Arthritis Hiatal hernia Numbness Acid reflux Family History Family History Mother Breast cancer HTN (hypertension) Maternal Aunt Breast cancer Son Diabetes Family history of problems with anesthesia: No Surgical History Surgical History H/O colonoscopy History of hip surgery History of hip replacement Hx of tubal ligation H/O: hysterectomy History of bladder surgery History of Problems with Anesthesia: Yes (PONV, long to wake) Social History Social History Household Members: None Housing: Apartment Are you a primary healthcare corporate account director to a significant other at home: No Do you presently have visiting nurse or other home services: No Alcohol intake: never Patient Tobacco Use Status: Never used Tobacco Use of substances other than those prescribed or required for medical reasons: No Have you been hit, kicked, punched, or otherwise hurt by someone within the past year? 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 Sexual orientation: Straight/Heterosexual Gender identity: Female Meds Allergies Allergy/AdvReac Type Severity Reaction Status Date / Time morphine [MORPHINE] AdvReac Intermediate VOMITING Verified 03/17/24 06:06 oxycodone [OXYCODONE] AdvReac Intermediate VOMITING Verified 03/17/24 06:06 Opioids - Morphine Analogues AdvReac Vomiting Verified 03/17/24 06:06 Home Medications ?Medication ?Instructions ?Recorded ?Confirmed ?Last Taken ?Type omeprazole magnesium 20 mg 20 mg PO DAILY 11/15/20 03/17/24 03/17/24 History tablet,delayed release (Prilosec OTC) calcium carbonate 500 mg PO DAILY 11/16/22 03/17/24 03/16/24 History multivitamin 1 tab PO DAILY 03/09/24 03/17/24 03/16/24 History Exam Height,Weight and Vital Signs: Height 5 ft 5 in Weight 77.111 kg Last Vital Signs Pulse 74 03/09/24 12:22 Resp 18 03/09/24 12:22 BP 138/65 03/09/24 12:22 Pulse Ox 97 03/09/24 12:22 O2 Del Method Room Air 03/09/24 12:22 Pertinent Lab Results Pertinent Lab Results: Lab Results 03/09/24 Range/Units 12:35 Nasal Screen MRSA (PCR) NEGATIVE (Negative) Nasal S. aureus Screen POSITIVE A (Negative) Nasal MRSA/S.aureus Interp SEE NOTE Laboratory Tests 02/28/24 07:04 WBC 5.5 Hgb 14.7 Hct 45.1 Plt Count 282 Sodium 142 Potassium 4.5 Chloride 108 Carbon Dioxide 26 BUN 14 Creatinine 0.70 Narrative Narrative: EKG 02/2024 Vent. Rate : 067 BPM Atrial Rate : 067 BPM P-R Int : 200 ms QRS Dur : 088 ms QT Int : 384 ms P-R-T Axes : 056 006 028 degrees QTc Int : 405 ms Normal sinus rhythm Cannot rule out Anterior infarct , age undetermined Abnormal ECG When compared with ECG of 13-DEC-2020 19:40, Nonspecific T wave abnormality has replaced inverted T waves in Inferior leads Airway Mallampati Class: I TM Dist: >3cm Neck ROM: Full Loose/Missing/Broken Teeth: Yes (5 x molars pulled) Heart: RRR Lungs: CTAB Assessment and Plan Assessment Anesthesia Assessment: Anesthesia Plan Discussed and PAT Visit Final Anesthetic Review Family History of Problems with Anesthesia: No History of Problems with Anesthesia: Yes (PONV, long to wake) Documented by User: Lilli Rosas MD 03/17/24 08:03 [facility] Past Medical History Medical History Back pain Arthritis Hiatal hernia Numbness Acid reflux Family History Family History Mother Breast cancer HTN (hypertension) Maternal Aunt Breast cancer Son Diabetes Surgical History Surgical History H/O colonoscopy History of hip surgery History of hip replacement Hx of tubal ligation H/O: hysterectomy History of bladder surgery Social History Social History Household Members: None Housing: Apartment Are you a primary healthcare corporate account director to a significant other at home: No Do you presently have visiting nurse or other home services: No Alcohol intake: never Patient Tobacco Use Status: Never used Tobacco Use of substances other than those prescribed or required for medical reasons: No Have you been hit, kicked, punched, or otherwise hurt by someone within the past year? 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 Sexual orientation: Straight/Heterosexual Gender identity: Female Meds Allergies Allergy/AdvReac Type Severity Reaction Status Date / Time morphine [MORPHINE] AdvReac Intermediate VOMITING Verified 03/17/24 06:06 oxycodone [OXYCODONE] AdvReac Intermediate VOMITING Verified 03/17/24 06:06 Opioids - Morphine Analogues AdvReac Vomiting Verified 03/17/24 06:06 Home Medications ?Medication ?Instructions ?Recorded ?Confirmed ?Last Taken ?Type omeprazole magnesium 20 mg 20 mg PO DAILY 0103/17/24 03/17/24 History tablet,delayed release (Prilosec OTC) calcium carbonate 500 mg PO DAILY 11/16/22 03/17/24 03/16/24 History multivitamin 1 tab PO DAILY 03/09/24 03/17/24 03/16/24 History Assessment and Plan Final Anesthetic Review ASA Class: II Final Preanesthetic Review: No Changes in Pt Med Stat, Meds/Allgs Chart Reviewed, Consent Obtained/Reviewed and Anes Risks/Benef Reviewed Patient Risk: Intermediate Procedure Risk: Low Anesthetic Plan Anesthetic Plan: GA Disposition: Standard PACU
[2024-03-09 14:47] LABS: MRSA Nasal PCR NEGATIVE (Negative); SA Nasal PCR POSITIVE (Negative)
[2024-03-17] VITALS (22 sets, daily range): BP systolic 103–149; BP diastolic 48–112; PULSE 60–82; RESP 12–77; TEMP 36.2–37.3; O2SAT 93–100; BMI 27.5
--- NOTE | ~2024-03-17 | XR_ITS ---
EXAMINATION: XR PELVIS CLINICAL INFORMATION: Status-post left total hip arthroplasty. COMPARISON: Prior radiographs, most recently 03/17/2024. TECHNIQUE: AP view of the pelvis. FINDINGS: Prosthetic components of the bilateral total hip arthroplasties are appropriately aligned. No periprosthetic fracture. There is no dislocation. No focal soft tissue swelling, gas or foreign body is seen. XR/XR pelvis 1-2V IMPRESSION: Normal pelvis.
[2024-03-17] MEDS: Scopolamine 1.5 MG PATCH.TD.3 TRANSDERMA (06:35)
[2024-03-17] MEDS: Lactated Ringers 1,000 ML 100 ML IVCONT ×3 (06:35→22:22)
--- NOTE | 2024-03-17 07:24 | MHC.SHP ---
Pre-Procedural Eval Section A - 24 Hr Update-Section A only Date of Service: 03/17/24 The patient is an INPATIENT: No Changes since office visit: No Cold of Flu in the past 2 weeks, No New Medical Problems, No Changes in Medication and No Patient answered all questions The patient has been examined within 24 hours of the surgical procedure. The History & Physical has been completed within 30 days and I have reviewed it.: Yes Section B - Complete if H&P > 30 days Chief Complaint: LT ANABELLA Allergies: Allergies Allergy/AdvReac Type Severity Reaction Status Date / Time morphine [MORPHINE] AdvReac Intermediate VOMITING Verified 03/17/24 06:06 oxycodone [OXYCODONE] AdvReac Intermediate VOMITING Verified 03/17/24 06:06 Opioids - Morphine Analogues AdvReac Vomiting Verified 03/17/24 06:06 Plan I have reviewed the history and physical and performed a pertinent physical examination on my patient. No changes have occurred unless specified. Time Spent With Patient Time: Total time managing care of this patient today ____ minutes.
--- NOTE | 2024-03-17 08:03 | HO.POSTANES ---
Post Anesthesia Evaluation Post Anesthesia Evaluation Date of Service: 03/10/24 Vital Signs: Vital Signs Temp Pulse Resp BP Pulse Ox O2 Del Method 03/17/24 06:33 97.7 F 82 16 140/84 H 98 Room Air
--- NOTE | 2024-03-17 09:15 | P.BOP_ITS ---
Brief Operative Note Date of Service: 03/17/24 Pre-op diagnosis: Left hip OA Post-op diagnosis: same Procedure: Left ANABELLA Implants: [place] Accolade 2 #5 132 with +2.5 ceramic femoral head Trident 2 #52 Surgeon: Hasmukh Morgan MD Anesthesia: GETA and local Was an Tobacco Stemmer Machine used for this Procedure?: Yes Tobacco Stemmer Machine: Nicole Hansen Estimated blood loss (mL): 250 IV fluids (mL): 1,000 Pathology: other Condition: stable Disposition: PACU
[2024-03-17] MEDS: HYDROmorphone HCl 0.5 MG/0.5 ML SYRINGE 0.25 MG IVPUSH ×4 (09:36→10:23)
--- NOTE | 2024-03-17 09:37 | PM.DS ---
DS: Providers Provider Date of Service: 03/19/24 <Nicole Hansen PA-C - Last Filed: 03/19/24 09:07> Date of admission: 03/17/24 05:51 <Sneha Matos PA-C - Last Filed: 03/17/24 09:38> Primary care physician: Hemal Suarez DO <nSeha Matos PA-C - Last Filed: 03/17/24 09:38> DS: Summary Hospital Course Hospital Course: The patient underwent a successful left total hip arthroplasty, they were transferred to PACU and then to the floor to recover. During their stay, their vitals were stable, afebrile at ( ). Labs were unremarkable, H/H 10.0/30.2 POD 1 they were started on Aspirin 325mg po bid for DVT ppx, they also received Physical Therapy services twice a day. Prior to discharge, their dressing was clean dry and intact and the plan was to be discharged home with VNA services. <Sneha Matos PA-C - Last Filed: 03/17/24 09:38> Time Attestation Discharge Coordination Time (in mins): 30 <Sneha Matos PA-C - Last Filed: 03/17/24 09:38> Quality: Safe Use of Opioids Does Pt have an Active Cancer Diagnosis on the Problem List?: No <Sneha Matos PA-C - Last Filed: 03/17/24 09:38> Quality: Stroke Does the patient have a stroke diagnosis?: No <FRANCO Green Last Filed: 03/17/24 09:38> Physical Exam Vital Signs: Vital Signs: Last Vital Signs Temp 97.9 F 03/17/24 09:24 Pulse 81 03/17/24 09:24 Resp 18 03/17/24 09:24 BP 125/67 03/17/24 09:24 Pulse Ox 95 03/17/24 09:24 O2 Del Method Nasal Cannula 03/17/24 09:24 O2 Flow Rate 2 03/17/24 09:24 BMI result Body Mass Index 27.5 <FRANCO Green Last Filed: 03/17/24 09:38> Const: General: cooperative, healthy appearing and no acute distress <Sneha Matos PA-C - Last Filed: 03/17/24 09:38> Resp: Effort & Inspection: normal respiratory effort and able to speak in complete sentences <Sneha Matos PA-C - Last Filed: 03/17/24 09:38> Cardio: Rate: regular rate <Sneha Matos PA-C - Last Filed: 03/17/24 09:38> Peripheral pulses: Peripheral pulses 2+ throughout <Sneha Matos PA-C - Last Filed: 03/17/24 09:38> GI: Palpation (GI): Soft to palpation <Sneha Matos PA-C - Last Filed: 03/17/24 09:38> Skin: Lesions: no lesions <Sneha Matos PA-C - Last Filed: 03/17/24 09:38> Rashes: no rashes <Sneha Matos PA-C - Last Filed: 03/17/24 09:38> Extrem: Other: left hip dressing is c/d/i. Able to dorsi/plantar flex. Calf is supple and nontender. Sensation intact. Pedal pulse intact. <Sneha Matos PA-C - Last Filed: 03/17/24 09:38> DS: Data Data Completed and Pending Pending studies at discharge: Pending at discharge 03/17/24 08:18 Surgical [PTH] Routine <Sneha Matos PA-C - Last Filed: 03/17/24 09:38> Labs on day of discharge: Laboratory Results - last 24 hr 03/17/24 06:54 Blood Type A Positive Antibody Screen NEGATIVE <Sneha Matos PA-C - Last Filed: 03/17/24 09:38> Discharge Plan Discharge Anticipated Discharge Date/Time: 03/18/24 11:00 <Sneha Matos PA-C - Last Filed: 03/17/24 09:38> Patient Disposition: Home Health Service <Sneha Matos PA-C - Last Filed: 03/17/24 09:38> Discharge Diagnosis: s/p LTHA <Sneha Matos PA-C - Last Filed: 03/17/24 09:38> s/p LTHA <Nicole Hansen PA-C - Last Filed: 03/19/24 09:07> Referrals: Mikel DICKERSON [Outside] - 1 Week Nicole Hansen PA-C [Physician [employer] 7 [employer] 8 Teacher] - 04/02/24 2:00 pm <Sneha Matos PA-C - Last Filed: 03/17/24 09:38> Discharge Medications: New docusate sodium 100 mg Capsule 100 mg PO BID 14 Days Qty: 28 0RF celecoxib 200 mg Capsule 200 mg PO BID 30 Days Qty: 60 0RF aspirin 325 mg Tablet 325 mg PO BID 42 Days Qty: 84 0RF acetaminophen 325 mg Tablet 650 mg PO Q6H PRN (Reason: Pain, Mild (Pain Scale 1-3)) 30 Days Qty: 240 0RF tramadol 50 mg tablet 50 mg PO Q6H PRN (Reason: pain) 7 Days Qty: 28 0RF Continued (DME) Raised toilet seat See Rx Instructions .ROUTE .MEDSUPPLY Qty: 1 0RF Rx Instructions: As directed (DME) cezar Misc See Rx Instructions .MEDSUPPLY Qty: 1 0RF Rx Instructions: Folding Front wheeled walker omeprazole magnesium 20 mg Capsule,Delayed Release(Dr/Ec) 20 mg PO DAILY@0630 <Sneha Matos PA-C - Last Filed: 03/17/24 09:38> Discharge Orders: Discharge Order (Routine); Ordered 03/19/24 Ordered By: Nicole Hansen <FRANCO Green Last Filed: 03/17/24 09:38> Diet: Advance to usual diet <FRANCO Green Last Filed: 03/17/24 09:38> Advance to usual diet <FRANCO Sharma Last Filed: 03/19/24 09:07> Activity on Discharge: Use cane or walker <FRANCO Green Last Filed: 03/17/24 09:38> Use cane or walker <FRANCO Sharma Last Filed: 03/19/24 09:07> Stand Alone Forms: Patient Portal Discharge page <Sneha Matos PA-C - Last Filed: 03/17/24 09:38> Print Language: French <FRANCO Green Last Filed: 03/17/24 09:38> Care Plan Goals: restore fxn to left hip <FRANCO Green Last Filed: 03/17/24 09:38> Health Concerns: None <FRANCO Green Last Filed: 03/17/24 09:38> Plan of Treatment: Physical Therapy for total hip arthroplasty: posterior precautions, gait training, ROM, strength Limit stair climbing No showering, no tub bath-keep dressing clean, dry and intact No driving x6 weeks Continue ASA bid x 6 weeks Follow up with [facility] in 2 weeks <Sneha Matos PA-C - Last Filed: 03/17/24 09:38> Assessment: stable for d/c <FRANCO Green Last Filed: 03/17/24 09:38>
--- NOTE | 2024-03-17 09:38 | W.MHC.F2F ---
Documented by User: Sneha Matos PA-C 03/17/24 09:39 Service Date Service Date: 03/17/24 Encounter Date of encounter: 03/18/24 Reasons for Services Signs and symptoms assessed: s/p LTHA Pt. is considered homebound due to recent surgery. Unable to drive, poor balance, poor gait mechanics. Reason for physical therapy: home safety and mobility, therapeutic exercises, restore joint function, gait/transfer training, assess need for DME and ADL training Reason for occupational therapy: home safety and mobility, therapeutic exercises, restore joint function, gait/transfer training, assess need for DME and ADL training Homebound: Leaving the home is medically contraindicated at this time without the asist of a device and/or another person due th the listed conditions above and below. Reason homebound: unsteady gait / fall risk, leg weakness, pain with ambulation, poor balance / fall risk and unable to drive Certification: Based on the above findings, I certify that this patient is confined to the home and needs intermittent jail care, physical therapy and/or speech therapy, or continues to need occupational therapy. The patient is under my care, and I have initiated the establishment of the plan of care. The patient will be followed by a physician who will periodically review the plan of care. Time Spent With Patient Time: Total time managing care of this patient today ____ minutes. Documented by User: Nicole Hansen PA-C 03/19/24 09:08 Service Date Service Date: 03/19/24 Encounter Date of encounter: 03/19/24
[2024-03-17] MEDS: ondansetron HCL 4 MG/2 ML VIAL IVPUSH ×2 (11:04→19:07)
--- NOTE | 2024-03-17 12:33 | PHA.MEDREC ---
Pharmacy Consult ? Medication Reconciliation Pharmacy has reviewed the medication reconciliation completed by nursing.
--- NOTE | 2024-03-17 13:03 | PHA.MEDREC ---
Pharmacy Consult ? Medication Reconciliation Pharmacy has completed the medication reconciliation.
[2024-03-17] MEDS: ceFAZolin Sodium/Dextrose,Iso 2 GM/50 ML PIGGYBACK IV (13:34)
[2024-03-17] MEDS: Acetaminophen 325 MG TABLET 650 MG PO (14:10)
[2024-03-17] MEDS: Promethazine HCL 25 MG TABLET PO (14:11)
[2024-03-17] MEDS: HYDROmorphone HCl 2 MG TABLET PO (19:09)
[2024-03-17] MEDS: Docusate Sodium 100 MG CAPSULE PO (20:05)
[2024-03-17] MEDS: oxyCODONE HCl ER 10 MG TAB.ER.12H PO (20:05)
[2024-03-17] MEDS: Celecoxib 200 MG CAPSULE PO (20:05)
[2024-03-18] VITALS (7 sets, daily range): BP systolic 110–142; BP diastolic 53–71; PULSE 82–98; RESP 16–18; TEMP 36.1–36.6; O2SAT 93–99
[2024-03-18] MEDS: Acetaminophen 325 MG TABLET 650 MG PO ×3 (02:59→21:09)
[2024-03-18 06:27] LABS: MANUAL DIFF FLAG NO
[2024-03-18 06:34] LABS: Basophils Percent Auto 0.1 % (0-2); Hematocrit 30.9 % (37.0-47.0); Hemoglobin 10.2 g/dl (12.0-16.0); Imm Gran Abs Auto 0.04 X10*3/uL (0.00-0.03); Imm Gran Pct Auto 0.5 % (0.0-0.4); Lymphocytes Absolute Auto 1.8 X10*3/uL (1.2-4.9); Lymphocytes Percent Auto 23.1 % (20-40); Mean Corpuscular Hemoglobin 29.7 pg (27.0-33.0); Mean Corpuscular Volume 90.1 fL (80.0-98.0); Mean Platelet Volume 10.2 fL (9.4-12.3); Monocytes Absolute Auto 0.9 X10*3/uL (0.1-1.2); Monocytes Percent Auto 11.1 % (2-11); Neutrophils Absolute Auto 5.2 x10*3/uL (2.0-8.3); Neutrophils Percent Auto 65.2 % (45-73); Platelet Count 203 X10*3/uL (160-400); Red Blood Count 3.43 X10*6/uL (4.20-5.50)
[2024-03-18 06:48] LABS: Anion Gap 12 (12-20); Blood Urea Nitrogen 13 mg/dL (9-16); Calcium 8.7 mg/dL (8.4-10.2); Carbon Dioxide 24 mmol/L (22-29); Chloride 106 mmol/L (96-108); Creatinine Clr Calc Pharmacy 74.5; Estimated Glomerular Filt Rate > 60; Glucose Fasting 98 mg/dL (60-99); Sodium 138 mmol/L (135-145)
[2024-03-18] MEDS: Celecoxib 200 MG CAPSULE PO ×2 (07:42→21:07)
[2024-03-18] MEDS: Aspirin 325 MG TABLET PO ×2 (07:42→21:07)
[2024-03-18] MEDS: Omeprazole 20 MG CAPSULE.DR PO (07:42)
[2024-03-18] MEDS: Docusate Sodium 100 MG CAPSULE PO ×2 (07:44→21:08)
--- NOTE | 2024-03-18 09:28 | HO.POSTANES ---
Post Anesthesia Evaluation Post Anesthesia Evaluation Date of Service: 03/18/24 Vital Signs: Vital Signs Temp Pulse Resp BP Pulse Ox O2 Del Method 03/18/24 07:36 97.8 F 82 18 114/54 L 94 Room Air 03/18/24 04:00 18 03/18/24 03:15 97.9 F 83 18 110/53 L 93 Room Air 03/17/24 23:19 98.1 F 78 18 103/51 L 93 Room Air Anesthesia: General LMA Mental Status: Awake Pain Control: Satisfactory Nausea/Vomiting: None Hydration: Adequate Anesthesia-Related Issues: No Anes. Related Issues
[2024-03-18] MEDS: oxyCODONE HCl ER 10 MG TAB.ER.12H PO ×2 (09:40→21:08)
--- NOTE | 2024-03-18 09:44 | MHC.CM.PN ---
PT LIVES ALONE PT will be staying at her sisters at [address] [facility] when dcd pt t recommends [facility]
--- NOTE | 2024-03-18 10:35 | PM.PNORT ---
Subjective Subjective Date of Service: 03/18/24 Interval history: POD1 s/p LTHA Patient is resting in bed comfortably No overnight events Pain is managed No additional complaints Physical Exam Vital Signs: Vital Signs: Last Vital Signs Temp 97.8 F 03/18/24 07:36 Pulse 82 03/18/24 07:36 Resp 18 03/18/24 07:36 BP 114/54 L 03/18/24 07:36 Pulse Ox 94 03/18/24 07:36 O2 Del Method Room Air 03/18/24 07:36 O2 Flow Rate 2.0 03/17/24 11:42 BMI result Body Mass Index 27.5 Const: General: cooperative, healthy appearing and no acute distress Resp: Effort & Inspection: normal respiratory effort and able to speak in complete sentences Cardio: Rate: regular rate Peripheral pulses: Peripheral pulses 2+ throughout GI: Palpation (GI): Soft to palpation Skin: Lesions: no lesions Rashes: no rashes Extrem: Other: lt hip dressing is c/d/i. Able to dorsi/plantar flex. Calf is supple and nontender. Sensation intact. Pedal pulse intact. Procedures Date of Service Date of Service: 03/18/24 Progress Note: A&P Assessment and plan (1) Status post total hip replacement, left: Status: Acute Plan Continue pain mgmnt Begin ASA for dvt ppx begin PT/OT for LTHA Dispo planning-Pending PT eval, pain mgmnt, additional therapy needed for safe discharge home Time Spent With Patient Time: Total time managing care of this patient today ____ minutes. Quality Stroke Does the patient have a stroke diagnosis?: No VTE Prior VTE?: No VTE Risk Level:: Medical - moderate - high VTE Device Contraindication: N/A - Device Ordered VTE Drug Contraindication: N/A - Med Ordered
[2024-03-18] MEDS: 0.9 % Sodium Chloride Flush 3 ML SYRINGE IVFLUSH (15:17)
[2024-03-19] MEDS: 0.9 % Sodium Chloride Flush 3 ML SYRINGE IVFLUSH ×2 (00:39→08:05)
[2024-03-19 03:38] VITALS: BP 141/63; PULSE 79; RESP 16; TEMP 36; O2SAT 95
[2024-03-19] MEDS: Omeprazole 20 MG CAPSULE.DR PO (06:09)
--- NOTE | 2024-03-19 06:45 | P.OP_ITS ---
Operative Note Operative Note Date of Service: 03/19/24 Narrative: Date of Service: 03/17/24 Pre-op diagnosis: Left hip OA Post-op diagnosis: same Procedure: Left ANABELLA Implants: [place] Accolade 2 #5 132 with +2.5 ceramic femoral head Trident 2 #52 Surgeon: Hasmukh Morgan MD Anesthesia: GETA and local Was an Application Development Intern used for this Procedure?: Yes Application Development Intern: Nicole Hansen Estimated blood loss (mL): 250 IV fluids (mL): 1,000 Pathology: other Condition: stable Disposition: PACU Procedure in detail: Patient was brought into the operating room and placed in the right lateral decubitus position. All bony prominences were well padded and the limb was prepped and draped in standard sterile fashion. A time-out was called to identify proper site procedure proper surgeon IV antibiotics and 1 g of transaxemic acid were administered. I began by making a curvilinear incision over the posterolateral aspect of the greater trochanter. Dissection was taken down to the tensor fascia which was incised in line with the incision and a Charnley retractor was placed. Cautery was used to maintain hemostasis. The hip was internally rotated and the external rotators were identified. The vessels were cauterized and a full-thickness capsular/external rotator layer was developed starting just proximal to the piriformis. This layer was tagged and a dull Hohmann retractor was placed underneath the neck in the hip was dislocated. A neck cut was made 1 cm proximal to the lesser trochanter and the head and neck were removed and measured 48mm on the back table. THe head was eburnated and deformned. I then removed the labrum and cauterized the fovea. I started with a 44 reamer and medialized to the inner table. I sequentially reamed up to a size 52 and impacted a 52mm cup at 45 degrees of inclination and 25 degrees of version. I then placed a 20 deg posterior lipped liner and turned my attention to the femur. I identified the piriformis insertion and used this as a starting point for my denise cutter. The medius tendon was protected with a Hibs retractor. A Charnley awl was inserted in the canal and a curved curette used to remove the lateral bone. I irrigated copiously. I then sequentially broached in the patient's natural version to a size 5 and placed my trial implants. I used a #5/132/+0 based on my pre-operative template. Using a trail head I took the hip through range of motion. I was satisfied with the stability. I removed all instrumentation and copiously irrigated. I placed my final femoral implant and again took the hip through range of motion and was most satisfied with the stability and length using a +2.5 femoral head. The final 2.5 implant was impacted in place and the hip reduced. I then irrigated copiously and placed 1 g of local transaxemic acid. I performed a capsular closure with 2.0 fiberwire, Maria Luisa's fascia with 0 Vicryl, subcuticular with 2-0 Vicryl and the skin with maureen. Patient was placed into a sterile dressing. Patient was extubated brought to the recovery room in stable condition. There were no known complications.
[2024-03-19 06:56] LABS: MANUAL DIFF FLAG NO
[2024-03-19 07:10] LABS: Basophils Percent Auto 0.2 % (0-2); Eosinophils Percent Auto 0.6 % (0-4); Hematocrit 30.2 % (37.0-47.0); Imm Gran Abs Auto 0.04 X10*3/uL (0.00-0.03); Imm Gran Pct Auto 0.6 % (0.0-0.4); Lymphocytes Absolute Auto 1.4 X10*3/uL (1.2-4.9); Lymphocytes Percent Auto 21.9 % (20-40); Mean Corpuscular HGB Conc 33.1 g/dl (31.0-35.0); Mean Corpuscular Hemoglobin 30.4 pg (27.0-33.0); Mean Corpuscular Volume 91.8 fL (80.0-98.0); Mean Platelet Volume 10.4 fL (9.4-12.3); Monocytes Absolute Auto 0.7 X10*3/uL (0.1-1.2); Monocytes Percent Auto 10.8 % (2-11); Neutrophils Absolute Auto 4.3 x10*3/uL (2.0-8.3); Neutrophils Percent Auto 65.9 % (45-73); Platelet Count 182 X10*3/uL (160-400); Red Blood Count 3.29 X10*6/uL (4.20-5.50); Red Cell Distribution Width 13.3 % (11.0-16.0); White Blood Count 6.5 X10*3/uL (4.8-10.8)
[2024-03-19 07:30] LABS: Anion Gap 11 (12-20); Blood Urea Nitrogen 15 mg/dL (9-16); Calcium 8.8 mg/dL (8.4-10.2); Carbon Dioxide 27 mmol/L (22-29); Chloride 108 mmol/L (96-108); Creatinine Clr Calc Pharmacy 84.4; Estimated Glomerular Filt Rate > 60; Glucose Fasting 88 mg/dL (60-99); Potassium 4.2 mmol/L (3.3-5.1); Sodium 142 mmol/L (135-145)
[2024-03-19 07:39] VITALS: BP 105/69; PULSE 90; RESP 16; TEMP 36.4; O2SAT 96
[2024-03-19] MEDS: Acetaminophen 325 MG TABLET 650 MG PO (08:05)
[2024-03-19] MEDS: Celecoxib 200 MG CAPSULE PO (08:05)
[2024-03-19] MEDS: Aspirin 325 MG TABLET PO (08:05)
[2024-03-19] MEDS: Docusate Sodium 100 MG CAPSULE PO (08:05)
--- NOTE | 2024-03-19 08:37 | MHC.CM.PN ---
[facility] 03/17/24 reviewed at discharge as well 03/19/24. Patient is agreeable to discharge today with [facility] She will receive services at her sisters home; which is where she will recover from the surgery. [address] [place]. [facility] is aware that discharge is today to her sisters [facility]. Patient sister will provide transportation home.
== END 2024-03-19 10:53 | disposition home health service (06) | DRG 470 ==
LOC: HO.SSSA 09:37 → HO.S3 09:54
PROVIDERS: Orthopaedic Surgery; Admitting Provider Physician Assistant; PCP Internal Medicine; Visit Provider Physician Assistant
PROC: 0SRB03A Replacement of Left Hip Joint with Ceramic Synthetic Substitute, Uncemented, Open Approach (ICD-10-PCS; CPT 27130; principal; 2024-03-17 07:30)
DX: M16.12 Unilateral primary osteoarthritis, left hip (principal); K21.9 Gastro-esophageal reflux disease without esophagitis; Z79.899 Other long term (current) drug therapy
CPT/HCPCS: 36415; 72170; 80048; 85025; 86850; 86900; 86901; 87640; 87641; 88304; 88311; 97110; 97116; 97161; 97165; 97530; 97535; C1776; J0131; J0690; J1100; J1170; J1920; J2250; J2371; J2405; J2704; J2795; J3010; J7120

== ENCOUNTER → 2024-03-17 05:51 | Outpatient (BNV) | payer MEDICARE, MEDICAID, SELFPAY | PROVIDERS: Admitting Provider Physician Assistant; PCP Internal Medicine; Visit Provider Orthopaedic Surgery | DX: Z96.642 Presence of left artificial hip joint (principal) | CPT/HCPCS: 27130; 99024; G0180 ==

== ENCOUNTER 2024-04-02 13:31 | Outpatient (AMB) | payer MEDICARE, OTHER, SELFPAY ==
--- NOTE | 2024-04-02 13:53 | MHC.OFFVIS ---
Intake Visit Reasons: 2WK PO: L ANABELLA w/NE 03/17/24 Intake Note: Xochilt a 74 year old female who presents today for a post operative left ANABELLA on 03/17/24 NE. Patient reports that she is doing well, states her pain has recently became tolerable. States she will be released tomorrow from at home therapy. Allergies morphine [MORPHINE] Adverse Reaction (Intermediate, Verified 04/02/24 13:57) VOMITING oxycodone [OXYCODONE] Adverse Reaction (Intermediate, Verified 04/02/24 13:57) VOMITING Opioids - Morphine Analogues Adverse Reaction (Verified 04/02/24 13:57) Vomiting HPI HPI 2WK PO: L ANABELLA w/NE 03/17/24: Details: 74-year-old female who returns to the office today for post-op left ANABELLA, 03/17/[address] Morgan. She states she has tolerable pain and is doing well overall. She is working on home therapy as instructed. She has no concerns today. [facility] Medical History (Updated 03/20/24 @ 00:03 by Linda Smith) Back pain Arthritis Hiatal hernia Numbness Acid reflux Surgical History H/O colonoscopy History of hip surgery History of hip replacement Hx of tubal ligation H/O: hysterectomy History of bladder surgery Family History Mother Breast cancer HTN (hypertension) Maternal Aunt Breast cancer Son Diabetes Social History Household Members: None Housing: Apartment Are you a primary ocular care technologist to a significant other at home: No Do you presently have visiting nurse or other home services: No Alcohol intake: never Patient Tobacco Use Status: Never used Tobacco service: No Current occupational status: employed 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 No erythema or drainage. Calf supple, nontender. NVI. Assessment & Plan Assessment & Plan (1) Status post total hip replacement, left: Code(s): Z96.642 - Presence of left artificial hip joint Category: Surgical Plan Zachariah removed, steri strips applied. She will begin to transition to Outpatient PT to continue working on Gait training, ROM and quad strength. No driving for another 4 weeks. She will require ppx abx for dental procedures. She will f/u in 4 weeks, sooner if needed. Patient Instructions: Scribed for Nicole Hansen PA-C, by Lorenzo Bermudez medical pathology teacher, on 04/02/2024 at 2:00 PM EST.? I, Nicole Hansen PA-C, have personally reviewed and agree with the information entered by the scribe. Coding Level of Care Code Global (16116) Diagnoses Status post total hip replacement, left Z96.642
== END 2024-04-07 21:07 | disposition home or self-care (01) ==
PROVIDERS: PCP Internal Medicine; Visit Provider Physician Assistant
DX: Z96.642 Presence of left artificial hip joint (principal)
CPT/HCPCS: 99024

== ENCOUNTER → 2024-04-02 13:31 | Outpatient (BNVA) | payer MEDICARE, OTHER, SELFPAY | PROVIDERS: PCP Internal Medicine; Visit Provider Physician Assistant | DX: Z96.642 Presence of left artificial hip joint (principal); Z48.02 Encounter for removal of sutures | CPT/HCPCS: 99212 ==

== ENCOUNTER 2024-04-23 09:19 | Outpatient (AMB) | payer MEDICARE, OTHER, SELFPAY ==
--- NOTE | 2024-04-23 09:39 | A.OFFVIS_ITS ---
Intake Visit Reasons: 6WK PO: L ANABELLA w/NE 03/17/24 Intake Note: Xochilt a 74 year old female who presents today for a post operative left ANABELLA on 03/17/24 NE. Patient reports that she is doing well, and has no concerns with the hip. She reports that the left knee has been painful recently, she ecplains that she had a significant cramp in the leg the other day. Allergies morphine [MORPHINE] Adverse Reaction (Intermediate, Verified 04/23/24 09:40) VOMITING oxycodone [OXYCODONE] Adverse Reaction (Intermediate, Verified 04/23/24 09:40) VOMITING Opioids - Morphine Analogues Adverse Reaction (Verified 04/23/24 09:40) Vomiting HPI HPI 6WK PO: L ANABELLA w/NE 03/17/24: Details: Xochilt is doing well 6 weeks status post left hip replacement. She is describing occasional left knee pain. It has not associated with activity but more feels of painful when she is at rest. [facility] Medical History (Updated 03/20/24 @ 00:03 by Linda Smith) Back pain Arthritis Hiatal hernia Numbness Acid reflux Surgical History H/O colonoscopy History of hip surgery History of hip replacement Hx of tubal ligation H/O: hysterectomy History of bladder surgery Family History (Reviewed 03/12/24 @ 14:53 by Nelia Cano [facility] [address]) Mother Breast cancer HTN (hypertension) Maternal Aunt Breast cancer Son Diabetes Social History Household Members: None Housing: Apartment Are you a primary health care attorney to a significant other at home: No Do you presently have visiting nurse or other home services: No Alcohol intake: never Patient Tobacco Use Status: Never used Tobacco service: No Current occupational status: employed 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 Mild Trendelenburg gait. inc c/d/i Assessment & Plan Assessment & Plan (1) Status post total hip replacement, left: Code(s): Z96.642 - Presence of left artificial hip joint Category: Surgical Plan: Xochilt is doing well. She may continue to increase her activities as tolerated. She understands the dislocation risks associated with severe bending twisting activities. She will follow up to see me in 6 weeks. Coding Level of Care Code Global (03232) Diagnoses Status post total hip replacement, left Z96.642
== END 2024-04-23 11:35 | disposition home or self-care (01) ==
PROVIDERS: PCP Internal Medicine; Visit Provider Orthopaedic Surgery
DX: Z96.642 Presence of left artificial hip joint (principal)
CPT/HCPCS: 99024

== ENCOUNTER → 2024-04-23 09:19 | Outpatient (BNVA) | payer MEDICARE, OTHER, SELFPAY | PROVIDERS: PCP Internal Medicine; Visit Provider Orthopaedic Surgery | DX: Z96.642 Presence of left artificial hip joint (principal) | CPT/HCPCS: 99212 ==

== ENCOUNTER 2024-05-08 07:57 | Outpatient (REF) | payer MEDICARE, OTHER, SELFPAY ==
--- NOTE | ~2024-05-08 | XR_ITS ---
EXAMINATION: XR HIP, LEFT CLINICAL INFORMATION: Left hip pain COMPARISON: Radiographs 03/17/2024 TECHNIQUE: AP radiograph of the pelvis and crosstable lateral view of the left hip FINDINGS: Stable and standard appearance of both total hip arthroplasties. The components are in the usual position and alignment without evidence of loosening or fracture. Prominent degenerative change of the pubic symphysis is noted. XR/XR hip LT min 2V IMPRESSION: Stable and standard appearance of both total hip arthroplasties. No acute abnormality.
== END 2024-05-08 07:58 | disposition home or self-care (01) ==
LOC: HO.HOSX 07:57
PROVIDERS: Visit Provider Orthopaedic Surgery
DX: M25.552 Pain in left hip (principal); Z47.1 Aftercare following joint replacement surgery; Z96.642 Presence of left artificial hip joint
CPT/HCPCS: 73502; 99212

== ENCOUNTER 2024-05-08 10:03 | Outpatient (AMB) | payer MEDICARE, OTHER, SELFPAY ==
--- NOTE | 2024-05-08 10:05 | MHC.OFFVIS ---
Intake Visit Reasons: PO L ANABELLA w/NE 03/17/24 Intake Note: Xochilt is a 74 year old female who presents today post operatively s/p Left ANABELLA 03/17/24. She reports she is doing well, having some pain but she takes Aleve which gives her relief. Patient informed me that she is starting to have pain in her left knee. Allergies morphine [MORPHINE] Adverse Reaction (Intermediate, Verified 05/08/24 10:17) VOMITING oxycodone [OXYCODONE] Adverse Reaction (Intermediate, Verified 05/08/24 10:17) VOMITING Opioids - Morphine Analogues Adverse Reaction (Verified 05/08/24 10:17) Vomiting HPI HPI PO L ANABELLA w/NE 03/17/24: Details: 6 weeks post op doing well. No complaints. Occasional pain with activity. [facility] Medical History (Updated 03/20/24 @ 00:03 by Linda Smith) Back pain Arthritis Hiatal hernia Numbness Acid reflux Surgical History H/O colonoscopy History of hip surgery History of hip replacement Hx of tubal ligation H/O: hysterectomy History of bladder surgery Family History Mother Breast cancer HTN (hypertension) Maternal Aunt Breast cancer Son Diabetes Social History Household Members: None Housing: Apartment Are you a primary occasional caregiver to a significant other at home: No Do you presently have visiting nurse or other home services: No Alcohol intake: never Patient Tobacco Use Status: Never used Tobacco service: No Current occupational status: employed 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 F/u 6 weeks. March d/c/ asa Orders: Orders XR pelvis 1-2V 05/08/24 M25.559 - Pain in unspecified hip Coding Level of Care Code Global (60322) Diagnoses Status post total hip replacement, left Z96.600
== END 2024-05-08 12:19 | disposition home or self-care (01) ==
PROVIDERS: PCP Internal Medicine; Visit Provider Orthopaedic Surgery
DX: Z96.642 Presence of left artificial hip joint (principal)
CPT/HCPCS: 99024

== ENCOUNTER 2024-05-21 07:28 | Outpatient (REF) | payer MEDICARE, OTHER, SELFPAY | END 2024-05-21 07:29 | disposition home or self-care (01) | LOC: HO.MAMMO 07:28 | PROVIDERS: PCP Internal Medicine; Visit Provider Internal Medicine | DX: Z12.31 Encounter for screening mammogram for malignant neoplasm of breast (principal) | CPT/HCPCS: 77063; 77067 ==

== ENCOUNTER → 2024-05-21 07:45 | Outpatient (BNV) | payer MEDICARE, MEDICAID, SELFPAY | PROVIDERS: PCP Internal Medicine; Visit Provider Radiology Diagnostic Radiology | DX: Z12.31 Encounter for screening mammogram for malignant neoplasm of breast (principal) | CPT/HCPCS: 77063; 77067 ==

== ENCOUNTER 2024-06-05 09:23 | Outpatient (AMB) | payer MEDICARE, OTHER, SELFPAY ==
--- NOTE | 2024-06-05 10:03 | MHC.OFFVIS ---
Intake Visit Reasons: PO: L ANABELLA w/NE 03/17/24 f/u Intake Note: Xochilt is a 74 year old female who presents today post operatively s/p Left ANABELLA 03/17/24. Patient reports that her hip is doing well. She has more concerns of pain in the left knee. She has discontinued her Aleve and she feels a bit more achey. She explains that she will be going dancing this weekend and is worried that the knee may flair up. Allergies morphine [MORPHINE] Adverse Reaction (Intermediate, Verified 06/05/24 10:14) VOMITING oxycodone [OXYCODONE] Adverse Reaction (Intermediate, Verified 06/05/24 10:14) VOMITING Opioids - Morphine Analogues Adverse Reaction (Verified 06/05/24 10:14) Vomiting PFSH Medical History (Updated 03/20/24 @ 00:03 by Linda Smith) Back pain Arthritis Hiatal hernia Numbness Acid reflux Surgical History H/O colonoscopy History of hip surgery History of hip replacement Hx of tubal ligation H/O: hysterectomy History of bladder surgery Family History Mother Breast cancer HTN (hypertension) Maternal Aunt Breast cancer Son Diabetes Social History Household Members: None Housing: Apartment Are you a primary manager managed care to a significant other at home: No Do you presently have visiting nurse or other home services: No Alcohol intake: never Patient Tobacco Use Status: Never used Tobacco service: No Current occupational status: employed 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 No pain with hip ROM and gait is improving. Continue gentle activity as tolerated. She is continuing to improve. Coding Level of Care Code Global (12914) Diagnoses Status post total hip replacement, left Z96.642
== END 2024-06-05 10:31 | disposition home or self-care (01) ==
PROVIDERS: PCP Internal Medicine; Visit Provider Orthopaedic Surgery
DX: Z96.642 Presence of left artificial hip joint (principal)
CPT/HCPCS: 99024

== ENCOUNTER → 2024-06-05 09:23 | Outpatient (BNVA) | payer MEDICARE, OTHER, SELFPAY | PROVIDERS: PCP Internal Medicine; Visit Provider Orthopaedic Surgery | DX: Z47.1 Aftercare following joint replacement surgery (principal); Z96.642 Presence of left artificial hip joint | CPT/HCPCS: 99212 ==

== ENCOUNTER 2025-01-05 08:58 | Outpatient (AMB) | payer MEDICARE, MEDICAID, SELFPAY ==
--- NOTE | 2025-01-05 09:01 | A.OFFPC_ITS ---
Vital Signs 01/05/25 09:13 Height 5 ft 3.5 in Weight 179 lb BMI 31.2 BP 138/72 Blood Pressure Location Rt brachial Pulse 69 Pulse Source Pulse Oximeter Temp 97.0 F Pulse Oximetry (%) 98 Intake Visit Reasons: physical Intake Note: having a real sour stomach going on for the last couple of weeks Allergies morphine [MORPHINE] Adverse Reaction (Intermediate, Verified 01/05/25 09:31) VOMITING oxycodone [OXYCODONE] Adverse Reaction (Intermediate, Verified 01/05/25 09:31) VOMITING Opioids - Morphine Analogues Adverse Reaction (Verified 01/05/25 09:31) Vomiting Medication List - Last Reconciled 01/05/25 by Rasheeda Brar PA-C omeprazole magnesium (Prilosec OTC) 20 mg PO DAILY [Raised toilet seat As directed NS] walker Folding Front wheeled walker [facility] Medical History Overweight (BMI 25.0-29.9) Cerumen impaction Annual physical exam History of mammogram (~05/21/24) Abdominal pain Abdominal bloating Anemia Diplopia Uterine prolapse Fibrocystic breast disease Back pain Arthritis Hiatal hernia Numbness Acid reflux Surgical History H/O colonoscopy (~05/14/18) History of hip surgery History of hip replacement Hx of tubal ligation H/O: hysterectomy History of bladder surgery Family History Mother Breast cancer HTN (hypertension) Maternal Aunt Breast cancer Son Diabetes Social History Household Members: None Housing: Apartment Are you a primary insurance healthcare consultant to a significant other at home: No Do you presently have visiting nurse or other home services: No Alcohol intake: never Patient Tobacco Use Status: Never used Tobacco service: No Current occupational status: employed 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 Sexual orientation: Straight/Heterosexual Gender identity: Female Questionnaire Thrive Questionnaire Date Thrive assessed: 03/18/24 Physical exam (Primary Care) Vital Signs: Last Vital Signs Temp 97.0 F 01/05/25 09:13 Pulse 69 01/05/25 09:13 BP 138/72 01/05/25 09:13 Pulse Ox 98 01/05/25 09:13 Care Plan Goal for BP management: <130/80 BMI result Body Mass Index 31.2 BMI Assessment/Plan discussion: High BMI High, discussed plan: lifestyle, weight reduction, dietary, physical activity and alcohol moderation Tobacco/Smoking Status: Tobacco use Status Patient Tobacco Use Status Never used Tobacco 01/05/25 09:06 Thrive Assessment: Date of Thrive Assessment Date Thrive assessed 03/18/24 01/05/25 09:06 Coding Level of Care Code Est Pt Prev Care >65y(79221) Diagnoses Annual physical exam Z00.00 Abdominal pain R10.9 Abdominal bloating R14.0 Acid reflux K21.9 Cerumen impaction H61.20 Overweight (BMI 25.0-29.9) E66.3 Assessment & Plan Assessment & Plan (1) Annual physical exam: Code(s): Z00.00 - Encounter for general adult medical examination without abnormal findings Category: Medical (2) Abdominal pain: Code(s): R10.9 - Unspecified abdominal pain Category: Medical Plan: Will order CBC, CMP, Mag, H pylori, lipid panel, liver function tests. Patient to take Prilosec b.i.d.. If symptoms persist despite normal labs and taking Prilosec b.i.d. will consider further evaluation. Condition is chronic and stable continue to monitor. (3) Abdominal bloating: Code(s): R14.0 - Abdominal distension (gaseous) Category: Medical Plan: Will order CBC, CMP, Mag, H pylori, lipid panel, liver function tests. Patient to take Prilosec b.i.d.. If symptoms persist despite normal labs and taking Prilosec b.i.d. will consider further evaluation. Condition is chronic and stable continue to monitor. (4) Acid reflux: Code(s): K21.9 - Gastro-esophageal reflux disease without esophagitis Category: Medical Plan: Patient currently on Prilosec instructed to take it b.i.d.. Condition is chronic and stable continue to monitor. (5) Cerumen impaction: Code(s): H61.20 - Impacted cerumen, unspecified ear Category: Medical Plan: Patient has ENT appointment for cerumen disimpaction with Dr. Oconnor tomorrow. Condition is chronic and stable continue to monitor. (6) Overweight (BMI 25.0-29.9): Code(s): E66.3 - Overweight Category: Medical Plan: Patient to improve her diet and exercise regimen. Condition is chronic and stable continue to monitor. Plan Plan The patient is advised to follow up with scheduled lab work including CBC, CMP, lipid profile, A1c, thyroid, and iron studies to assess for possible anemia and generalized health status. If gastrointestinal symptoms persist following bloodwork results, further testing for possible infections such as H. pylori might be considered. Instructions on fasting prior to tests were provided for optimal results. Encourage patient compliance with annual breast cancer surveillance via mammography, considering family history and past fibrocystic disease. The patient is advised cerumen removal by an toggle press folder and feeder and current use of Omeprazole reinforced, with dosing adjustments deferred pending future evaluations. Regular health maintenance and preventive care to be enforced with annual evaluations unless symptoms necessitate sooner consultations. Orders: Orders IRON PROFILE 01/04/25 D64.9 - Anemia, unspecified C Reactive Protein 01/04/25 Z. - Encounter for general adult medical examination without abnormal findings Lipid Panel 01/04/25 Z. - Encounter for general adult medical examination without abnormal findings Vitamin B12 and Folate 01/04/25 Z. - Encounter for general adult medical examination without abnormal findings Vitamin D 25-OH Total 01/04/25 Z. - Encounter for general adult medical examination without abnormal findings Ferritin 01/04/25 D64.9 - Anemia, unspecified Comprehensive Bishop. Panel Fast 01/04/25 Z. - Encounter for general adult medical examination without abnormal findings Complete Blood Count Auto Diff 01/04/25 Z. - Encounter for general adult medical examination without abnormal findings Hemoglobin A1c 01/04/25 Z. - Encounter for general adult medical examination without abnormal findings Magnesium 01/04/25 Z. - Encounter for general adult medical examination without abnormal findings Liver Panel 01/04/25 Z. - Encounter for general adult medical examination without abnormal findings TSH reflex Free T4 01/04/25 Z. - Encounter for general adult medical examination without abnormal findings Vitamin B1 01/04/25 Z. - Encounter for general adult medical examination without abnormal findings H Pylori Breath Test Today R10.9 - Unspecified abdominal pain, R14.0 - Abdominal distension (gaseous) Patient Instructions: Patient Instructions - Fast for a minimum of 12 hours for upcoming blood tests, do not eat after midnight before the test. - Continue taking Omeprazole for acid reflux, and report any significant changes in symptoms. - Schedule and undergo professional earwax removal as soon as possible. - Follow up with annual mammogram appointments as scheduled. - Contact our office if you experience worsening gastrointestinal symptoms or new symptoms develop. - Go to the laboratory for blood testing tomorrow morning to avoid delays in receiving results. - Maintain a balanced diet and avoid known reflux triggers. - Make a follow-up appointment if symptoms persist after the lab results are in, or sooner if advised. Scribe Plan - Not visible on output: History of Present Illness The patient is a 74-year-old female presenting for her annual physical exam in addition with concerns of gastrointestinal disturbance. She has a history of acid reflux, managed with Omeprazole, and a history of fibrocystic breast disease, now resolved. 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 The patient reports a sour stomach and occasional bloating, managed with Omeprazole. No current medications aside from this for her conditions of concern. She remains under surveillance for breast cancer due to family history, with annual mammograms, last performed in May 2024. The patient does not recall a recent colonoscopy beyond May 2018 findings and believes no further ones are planned due to age. She expresses concern about recent gastrointestinal symptoms, she reports she is having some abdominal bloating and left mid abdominal pain intermittently. Blood tests from March 2024 indicated expected post-surgical anemia but otherwise normal metabolic and lipid panels. 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 - Housing: Resides alone; stayed with sister post-operation for rehabilitation. - Functional Status: No assistive devices currently in use for mobility. - Family Status: Six grandchildren, two of whom are 25 years old. - Exercise & Activity Level: Moves freely; does not require assistance with daily activities. - Diet & Nutrition: Needs to manage diet concerning acid reflux. Review of Systems - Gastrointestinal: Reports occasional nausea, sour stomach, bloating, and two episodes of diarrhea. - Musculoskeletal: Denies recent falls or mobility issues. - Neurological: Denies headaches or vision changes. - Ear/Nose/Throat: Denies significant hearing issues, except temporary impairment due to wax buildup, scheduled for removal. Physical Exam Appearance: Alert. Oriented X3. No acute distress. Head: Normal external exam. Normocephalic. Atraumatic. Eyes: Pupils are equal, round, and reactive to light. Extraocular movements intact. Conjunctiva and sclera normal. Eyelids normal. Ears: External auditory canal normal. Tympanic membranes normal. Some earwax not ed, especially in the left ear. Throat: Pharynx normal. Uvula midline. Moist mucous membranes. Neck: Normal inspection. Neck supple. Full range of motion. No adenopathy. Thyroid Normal. No meningeal signs. No neck mass noted. Cardiovascular: Normal heart rate and rhythm. Heart sound normal. No murmurs noted. Pulses normal throughout. Respiratory: No respiratory distress. Painless inspiration. Breath sounds normal. No wheezes/rales/rhonchi noted. Chest nontender. No accessory muscle usage noted or decreased air movement noted. Abdomen: Soft and nontender. Bowel sounds normal in all 4 quadrants. No distention noted. No organomegaly noted. No visible injury noted. Reports occasional abdominal bloating and pain. Back: No costovertebral angle tenderness. Full range of motion noted. Skin: Skin warm and dry. Normal skin color. Normal skin turgor. No rashes/lesions/lacerations noted. Extremities: No lower extremity edema. Extremities exhibit normal range of motion. Extremities nontender. Neuro: Oriented X 3. No motor deficit. No sensory deficit. Reflexes normal. Results - Labs: Comprehensive Metabolic Panel and Lipid Panel from March 2024; normal results except post-operative anemia. - Imaging: Mammogram in May 2024, no abnormalities. - Procedures: Last colonoscopy in May 2018, reported absence of polyps. Plan The patient is advised to follow up with scheduled lab work including CBC, CMP, lipid profile, A1c, thyroid, and iron studies to assess for possible anemia and generalized health status. If gastrointestinal symptoms persist following bloodwork results, further testing for possible infections such as H. pylori might be considered. Instructions on fasting prior to tests were provided for optimal results. Encourage patient compliance with annual breast cancer surveillance via mammography, considering family history and past fibrocystic disease. The patient is advised cerumen removal by an toggle press folder and feeder and current use of Omeprazole reinforced, with dosing adjustments deferred pending future evaluations. Regular health maintenance and preventive care to be enforced with annual evaluations unless symptoms necessitate sooner consultations. Patient was informed and verbally consented to the use of an ambient scribe for clinic note documentation during this visit. Discussion Notes I discussed with the patient the plans for managing her gastrointestinal concer ns and ongoing monitoring of her reflux with Omeprazole therapy. Options for adjusting medication were outlined if the current regimen is insufficient. We reviewed the importance of regular fasting blood tests, including a screening for diabetes with an A1c, especially in light of her family and personal medical history. The patient acknowledged ongoing mammography for breast cancer surveillance. I confirmed the removal of cerumen buildup as a next step with her ENT provider. We also talked about the potential for H. pylori testing if GI symptoms persist. I emphasized early intervention should her conditions change or worsened symptoms arise. The patient expressed understanding and willingness to adhere to the outlined plan and will complete blood work promptly. Patient Instructions - Fast for a minimum of 12 hours for upcoming blood tests, do not eat after midnight before the test. - Continue taking Omeprazole for acid reflux, and report any significant changes in symptoms. - Schedule and undergo professional earwax removal as soon as possible. - Follow up with annual mammogram appointments as scheduled. - Contact our office if you experience worsening gastrointestinal symptoms or new symptoms develop. - Go to the laboratory for blood testing tomorrow morning to avoid delays in receiving results. - Maintain a balanced diet and avoid known reflux triggers. - Make a follow-up appointment if symptoms persist after the lab results are in, or sooner if advised.
[2025-01-05 09:13] VITALS: BP 138/72; PULSE 69; TEMP 36.1; O2SAT 98; BMI 31.2
--- OUTSIDE RECORDS SUMMARY | 2025-01-05 09:45 | XMS_ITS | Clinical Summary ---
Author Organization [employer] Address [address] [place] [address] [address] [place] [address] Care Team Providers Care Inspector [employer] Name Role Phone Unavailable Primary Care Provider Unavailabl e Allergies No known active allergies Medications omeprazole (PriLOSEC) [address] capsule daily. 7 Active amoxicillin (Amoxil) 500 MG capsule Take 4 capsules one hour before the dental appointment 12 capsule 3 Active Active Problems No known active problems Social History Tobacco Use Types Packs/Day Years Used Date Smoking Tobacco: Never Passive Smoke Exposure: Never Smokeless Tobacco: Never Tobacco Cessation:Counseling Given: Not Answered Alcohol Use Standard Drinks/Week Comments Never 0 (1 standard drink = 0.6 oz pur e alcohol) Comments Unknown Sex and Gender Information Value Date Recorded Sex Assigned at Female 09/03/2022 10:24 AM EDT Legal Sex Female 10:24 AM EDT Gender Identity Female 09/03/2022 10:24 AM EDT Sexual Orientation Straight 02/13/2023 9: 11 AM EDT Last Filed Vital Signs Vital Sign Reading Time Taken Comments Blood Pressure 119/78 04/17/2023 11:39 AM EDT Pulse 68 04/17/2023 11:39 AM EDT Temperature - - Respiratory Rate - - Oxygen Saturation - - Inhaled Oxygen Concentration - - Weight - - Height - - Body Mass Index - - Plan of Treatment Health Maintenance Due Date Last Done Comments CT Colonography 1952 Colonoscopy 1952 Colorectal Cancer Screening 1952 Depression Screening 1952 FIT DNA/Cologuard 1952 FIT 1952 FOBT 1952 SDOH Screening 1952 Sigmoidoscopy 1952 Alcohol/Substance Use Screening 1964 Hepatitis C Screening 01/17/1970 DTaP/Tdap/Td Vaccines (1 - Tdap) 01/17/1971 Mammogram 1992 Pneumococcal Vaccine: 50+ Years (1 of 1 - PCV) 01/17/2002 Zoster Vaccines (1 of 2) 01/17/2002 Dental Oral Exam 03/14/2022 09/13/2021 Dental Prophylaxis 08/16/2023 02/13/2023, 10/07/2014 COVID-19 Vaccine (1 - 2023- season) 2024 Influenza Vaccine (#1) 2024 Dental X-Ray: Full Mouth 09/14/2024 09/13/2021 Tobacco Screening 12/31/2024 12/31/2023 Dental X-Ray: Bitewings 01/01/2025 12/31/19 24, 08/21/2023, 06/13/2023, Additional history exists RSV Patients and Patients Aged 60 years or older (1 - 1-dose 75+ series) 01/17/2027 HIB Vaccines Aged Out No longer eligi ble based on patient's age to complete this topic HPV Vaccines Aged Out No longer eligi ble based on patient's age to complete this topic Hepatitis A Vaccines Aged Out No long er eligible based on patient's age to complete this topic Hepatitis B Vaccines Aged Out No long er eligible based on patient's age to complete this topic IPV Vaccines Aged Out No longer eligi ble based on patient's age to complete this topic Meningococcal Vaccine Aged Out No blake ellen eligible based on patient's age to complete this topic RSV under 20 months Aged Out No longe r eligible based on patient's age to complete this topic Rotavirus Vaccines Aged Out No longer eligible based on patient's age to complete this topic Procedures Procedure Name Priority Date/Time Associated Diagnosis Comments BITEWING - SINGLE RADIOGRAPHIC IMAGE Routine 12/31/2023 11:30 AM EST PROPHYLAXIS - ADULT Routine 02/13/2023 9 :00 AM EDT from Last 3 Months or Most Recently Relevant to Health Maintenance Insurance DENTAL - [facility] FULL (MEDICAID)
--- OUTSIDE RECORDS SUMMARY | 2025-01-05 09:45 | XMS_ITS | Encounter Summary ---
Author Organization [employer] Address [address] [place] [address] [address] [place] [address] Care Team Providers Care Web Development Director Name Role Phone Unavailable Primary Care Provider Unavailabl e Encounter Details Date Type Department Care Team (Latest Contact Info) Description 09/13/2021 Abstract [facility] Dental, Provider, DDS Social History Tobacco Use Types Packs/Day Years Used Date Smoking Tobacco: Never Assessed Comments Unknown Sex and Gender Information Value Date Recorded Sex Assigned at Female 09/03/2022 10:24 AM EDT Legal Sex Female 10:24 AM EDT Gender Identity Female 09/03/2022 10:24 AM EDT Sexual Orientation Straight 02/13/2023 9: 11 AM EDT documented as of this encounter Plan of Treatment Not on file documented as of this encounter Visit Diagnoses Not on filedocumented in this encounter
--- OUTSIDE RECORDS SUMMARY | 2025-01-05 09:45 | XMS_ITS | Encounter Summary ---
Author Organization [employer] Address [address] [facility] [address] [place] [address] Care Team Providers Care Wool Sacker Name Role Phone Unavailable Primary Care Provider Unavailabl e Encounter Details Date Type Department Care Team (Late st Contact Info) Description 03/04/2023 Abstract [facility] [address] [place] [address] Maria Guadalupe Goldstein DDS Social History Tobacco Use Types Packs/Day Years Used Date Smoking Tobacco: Never Passive Smoke Exposure: Never Smokeless Tobacco: Never Alcohol Use Standard Drinks/Week Comments Never 0 (1 standard drink = 0.6 oz pur e alcohol) Comments Unknown Sex and Gender Information Value Date Recorded Sex Assigned at Female 09/03/2022 10:24 AM EDT Legal Sex Female 10:24 AM EDT Gender Identity Female 09/03/2022 10:24 AM EDT Sexual Orientation Straight 02/13/2023 9: 11 AM EDT COVID-19 Exposure Response Date Recorded In the last 10 days, have yo u been in contact with someone who was confirmed or suspected to have Coronavirus/COVID-19? No / Unsure 03/04/2023 8:51 AM EDT documented as of this encounter Plan of Treatment Not on file documented as of this encounter Visit Diagnoses Not on filedocumented in this encounter
--- OUTSIDE RECORDS SUMMARY | 2025-01-05 09:45 | XMS_ITS | Encounter Summary ---
Author Organization [employer] Address [address] [facility] [address] [place] [address] Care Team Providers Care Sales Representative Trainee Name Role Phone Unavailable Primary Care Provider Unavailabl e Encounter Details Date Type Department Care Team (Late st Contact Info) Description 10/04/2022 Abstract [facility] ADULT DENTAL [address] [place] [address] Dental, Provider, DDS Social History Tobacco Use [...] on file documented as of this encounter Procedures Procedure Name Priority Date/Time Associated Diagnosis Comments 11 PREFABRICATED POST AND CORE IN ADDITION TO CROWN Routine 10/04/2022 12:00 AM EST 5 PREFABRICATED POST AND CORE IN ADDITION TO CROWN Routine 10/04/2022 12:00 AM EST 4 PREFABRICATED POST AND CORE IN ADDITION TO CROWN Routine 10/04/2022 12:00 AM EST 30 PREFABRICATED POST AND CORE IN ADDITION TO CROWN Routine 10/04/2022 12:00 AM EST 30 CROWN - PORCELAIN/CERAMIC Routine 10/04/2022 12:00 AM EST 22 F(V) COMPOSITE FILLING Routine 2021 12:00 AM EST 21 B(V) COMPOSITE FILLING Routine 2021 12:00 AM EST 10 MIDFL COMPOSITE FILLING Routine 10/04/2022 12:00 AM EST 6 DL COMPOSITE FILLING Routine 12:00 AM EST 20 MODB(V)L COMPOSITE FILLING Routine 10/04/2022 12:00 AM EST 28 B(V) COMPOSITE FILLING Routine 2021 12:00 AM EST 29 B(V) COMPOSITE FILLING Routine 2021 12:00 AM EST 3 MODBB(V)L COMPOSITE FILLING Routine 10/04/2022 12:00 AM EST 2 MOBL AMALGAM FILLING Routine 12:00 AM EST 29 MOD AMALGAM FILLING Routine 12:00 AM EST 5 ROOT CANAL Routine 10/04/2022 12:00 AM EST 4 ROOT CANAL Routine 10/04/2022 12:00 AM EST 19 ROOT CANAL Routine 10/04/2022 12:00 AM EST 11 ROOT CANAL Routine 10/04/2022 12:00 AM EST 30 ROOT CANAL Routine 10/04/2022 12:00 AM EST 11 PFM CROWN Routine 10/04/2022 12:00 AM EST 5 PFM CROWN Routine 10/04/2022 12:00 AM EST 4 PFM CROWN Routine 10/04/2022 12:00 AM EST 14 PFM CROWN Routine 10/04/2022 12:00 AM EST 8 F(V) COMPOSITE FILLING Routine 017 12:00 AM EDT 9 MF(V)L COMPOSITE FILLING Routine 08/13/2017 12:00 AM EDT 28 O AMALGAM FILLING Routine 01/25/2010 12:00 AM EDT 18 MOB(V) AMALGAM FILLING Routine 2009 12:00 AM EDT 19 PFM CROWN Routine 01/25/2010 12:00 AM EDT documented in this encounter Visit Diagnoses Not on filedocumented in this encounter
--- OUTSIDE RECORDS SUMMARY | 2025-01-05 09:45 | XMS_ITS | Encounter Summary ---
Author Organization [employer] Address [address] [facility] 7t [place] [address] Care Team Providers Care Career Development Manager Name Role Phone Unavailable Primary Care Provider Unavailabl e Encounter Details Date Type Department Care Team (Late st Contact Info) Description 10/09/2022 Abstract [facility] ADULT DENTAL [address] [place] [address] Dental, Provider, DDS Social History Tobacco Use Types Packs/Day Years Used Date Smoking Tobacco: Never Comments Unknown Sex and Gender Information Value [...] suspected to have Coronavirus/COVID-19? No / Unsure 10/08/2022 9:23 AM EST documented as of this encounter Plan of Treatment Not on file documented as of this encounter Visit Diagnoses Not on filedocumented in this encounter
--- OUTSIDE RECORDS SUMMARY | 2025-01-05 09:45 | XMS_ITS | Encounter Summary ---
Author Organization [employer] Address [address] [facility] 7t [place] [address] Care Team Providers Care Running Rigger Name Role Phone Unavailable Primary Care Provider Unavailabl e Reason for Visit * Reason Onset Date Comments Appointment 03/11/2023 Encounter Details Date Type Department Care Team ([facility] st Contact Info) Description 03/11/[address] [facility] ADULT DENTAL [address] [place] [address] Maria Guadalupe Goldstein DDS Appointment Social History Tobacco Use Types Packs/Day Years [...] suspected to have Coronavirus/COVID-19? No / Unsure 03/11/2023 9:34 AM EDT documented as of this encounter Miscellaneous Notes * Telephone Encounter - Meghana Mcintosh - 03/11/2023 8:35 AM EDT Xochilt Chan 1950 Patient was seen on 03/04/2023 for extraction and took all the medication that was given to her but is still feeling a lot of pain and ear is starting to hurt please advise documented in this encounter Plan of Treatment Not on file documented as of this encounter Visit Diagnoses Not on filedocumented in this encounter
== END 2025-01-05 09:34 | disposition home or self-care (01) ==
LOC: HO.HMCSH 08:58
PROVIDERS: PCP Internal Medicine; Visit Provider Physician Assistant Medical
DX: Z00.00 Encounter for general adult medical examination without abnormal findings (principal); R10.9 Unspecified abdominal pain; R14.0 Abdominal distension (gaseous); K21.9 Gastro-esophageal reflux disease without esophagitis; H61.20 Impacted cerumen, unspecified ear; E66.3 Overweight; Z68.31 Body mass index [BMI] 31.0-31.9, adult

== ENCOUNTER → 2025-01-05 08:58 | Outpatient (BNVA) | payer MEDICARE, OTHER, SELFPAY | PROVIDERS: PCP Internal Medicine; Visit Provider Physician Assistant Medical | DX: Z00.00 Encounter for general adult medical examination without abnormal findings (principal); D64.9 Anemia, unspecified; R10.9 Unspecified abdominal pain; R14.0 Abdominal distension (gaseous); K21.9 Gastro-esophageal reflux disease without esophagitis; H61.20 Impacted cerumen, unspecified ear; E66.3 Overweight; Z68.31 Body mass index [BMI] 31.0-31.9, adult; Z71.3 Dietary counseling and surveillance | CPT/HCPCS: 99397 ==

== ENCOUNTER 2025-01-06 07:19 | Outpatient (REF) | payer MEDICARE, OTHER, SELFPAY ==
--- OUTSIDE RECORDS SUMMARY | 2025-01-06 07:21 | XMS_ITS | Encounter Summary ---
Author Organization [employer] Address [address] [facility] 7t [place] [address] Care Team Providers Care Life Skills Educator Name Role Phone Unavailable Primary Care Provider Unavailabl e Encounter Details Date Type Department Care Team (Late st Contact Info) Description 10/04/2022 Abstract [facility] ADULT DENTAL [address] [place] [address] Dental, Provider, DDS Social History Tobacco Use [...]
--- OUTSIDE RECORDS SUMMARY | 2025-01-06 07:21 | XMS_ITS | Encounter Summary ---
Author Organization [employer] Address [address] [place] [address] 7 [place] [address] Care Team Providers Care Director [employer] Media Solutions Name Role Phone Unavailable Primary Care Provider Unavailabl e Encounter Details Date Type Department Care Team (Latest Contact Info) Description 09/13/2021 Abstract [facility] CONVERSIONS Dental, Provider, DDS Social History Tobacco [...]
--- OUTSIDE RECORDS SUMMARY | 2025-01-06 07:22 | XMS_ITS | Clinical Summary ---
Author Organization [employer] Address [address] [place] [address] 7t [place] [address] Care Team Providers Care Medical Operations Supervisor Name Role Phone Unavailable Primary Care Provider [...]
--- OUTSIDE RECORDS SUMMARY | 2025-01-06 07:22 | XMS_ITS | Encounter Summary ---
Author Organization [employer] Address [address] [facility] 7t [place] [address] Care Team Providers Care Network Operations Lead Name Role Phone Unavailable Primary Care Provider Unavailabl e Reason for Visit * Reason Onset Date Comments Appointment 03/11/2023 Encounter Details Date Type Department Care Team ([facility] st Contact Info) Description 03/11/2023 Telephone [facility] ADULT DENTAL [address] [place] [address] Maria Guadalupe Goldstein DDS Appointment Social History [...]
--- OUTSIDE RECORDS SUMMARY | 2025-01-06 07:22 | XMS_ITS | Encounter Summary ---
Author Organization [employer] Address [address] [facility] 7t [place] [address] Care Team Providers Care Electrical Maintenance Technician Name Role Phone Unavailable Primary Care Provider Unavailabl e Encounter Details Date Type Department Care Team (Late st Contact Info) Description 03/04/2023 Abstract [facility] CHC ADULT DENTAL [address] [place] [address] Maria Guadalupe Goldstein DDS Social History Tobacco [...]
[2025-01-06 10:25] LABS: MANUAL DIFF FLAG NO
[2025-01-06 10:39] LABS: Basophils Percent Auto 0.5 % (0-2); Eosinophils Absolute Auto 0.1 X10*3/uL (0.0-0.4); Eosinophils Percent Auto 1.9 % (0-4); Hemoglobin 14.3 g/dl (12.0-16.0); Lymphocytes Absolute Auto 2.2 X10*3/uL (1.2-4.9); Lymphocytes Percent Auto 50.4 % (20-40); Mean Corpuscular HGB Conc 32.5 g/dl (31.0-35.0); Mean Corpuscular Hemoglobin 28.9 pg (27.0-33.0); Mean Corpuscular Volume 88.9 fL (80.0-98.0); Mean Platelet Volume 10.9 fL (9.4-12.3); Monocytes Absolute Auto 0.4 X10*3/uL (0.1-1.2); Monocytes Percent Auto 9.6 % (2-11); Neutrophils Absolute Auto 1.6 x10*3/uL (2.0-8.3); Neutrophils Percent Auto 37.6 % (45-73); Platelet Count 242 X10*3/uL (160-400); Red Blood Count 4.95 X10*6/uL (4.20-5.50); Red Cell Distribution Width 13.5 % (11.0-16.0); White Blood Count 4.3 X10*3/uL (4.8-10.8)
[2025-01-06 10:50] LABS: Estimated Average Glucose 111 mg/dL; Hemoglobin A1C 139.5215 umol/L; Hemoglobin A1c % 5.5 % (<6.0); Total Hemoglobin (HGBA1C) 3802.7942 umol/L
[2025-01-06 11:41] LABS: Alanine Aminotransferase 19 U/L (0-31); Albumin Level 3.8 g/dL (3.5-5.0); Alkaline Phosphatase 53 U/L (39-117); Anion Gap 12 (12-20); Aspartate Amino Transferase 23 U/L (5-31); Bilirubin Direct 0.1 mg/dL (0.0-0.5); Bilirubin Total 0.5 mg/dL (0.0-1.0); Blood Urea Nitrogen 16 mg/dL (9-16); C Reactive Protein < 0.10 mg/dL (< or = 0.50); Calcium 9.1 mg/dL (8.4-10.2); Carbon Dioxide 26 mmol/L (22-29); Chloride 109 mmol/L (96-108); Cholesterol 202 mg/dL (<200); Estimated Glomerular Filt Rate > 60; Glucose Fasting 82 mg/dL (60-99); HDL Cholesterol 67 mg/dL (>40); Iron 81 mcg/dL (30-160); LDL Cholesterol Calculated 121 mg/dL (<100); Magnesium 2.2 mg/dL (1.6-2.6); Percent Iron Saturation 30 % (15-50); Potassium 4.5 mmol/L (3.3-5.1); Sodium 142 mmol/L (135-145); Total Iron Binding Capacity 274 mcg/dL (228-428); Total Protein 6.8 g/dL (6.5-8.0); Triglycerides 74 mg/dL (<150); Unsaturated Iron Binding 193 ug/dL
[2025-01-06 11:47] LABS: Ferritin 13 ng/mL (10-250); TSH reflex Free T4 3.59 uIU/mL (0.32-4.0); Vitamin D 25-OH Total 47.1 ng/mL (>30)
[2025-01-06 11:55] LABS: Folate 14.2 ng/mL (> or = 4.0); Vitamin B12 570 pg/mL (200-900)
[2025-01-16 16:08] LABS: Vitamin B1 32 nmol/L (8-30)
== END 2025-01-06 07:20 | disposition home or self-care (01) ==
LOC: HO.HMGCLDS 07:19
PROVIDERS: PCP Internal Medicine; Visit Provider Physician Assistant Medical
DX: Z00.00 Encounter for general adult medical examination without abnormal findings (principal); D64.9 Anemia, unspecified; Z13.1 Encounter for screening for diabetes mellitus; Z13.6 Encounter for screening for cardiovascular disorders
CPT/HCPCS: 36415; 80053; 80061; 80076; 82248; 82306; 82607; 82728; 82746; 83036; 83540; 83735; 84425; 84443; 85025; 86140

== ENCOUNTER 2025-02-19 10:19 | Outpatient (AMB) | payer MEDICARE, MEDICAID, SELFPAY ==
[2025-02-19 10:29] VITALS: BP 100/68; PULSE 75; RESP 16; TEMP 36.8; O2SAT 98; BMI 30.9
--- NOTE | 2025-02-19 10:29 | AM.OFFWIN_ITS ---
Intake Vital Signs 3 02/19/25 10:29 Height 5 ft 3.5 in Weight 177 lb BMI 30.9 BP 100/68 Blood Pressure Location Lt brachial Position Sitting Respiration 16 Pulse 75 Pulse Source Pulse Oximeter Temp 98.3 F Temp Source Oral Pulse Oximetry (%) 98 Oxygen Delivery Method Room Air Intake Visit Reasons: EP-upper back cyst infected Intake Note: Pt is here today c/o Rt side of upper back cyst that was removed on saturday and has 3 stitches: Feels burning sensation and ? infected Patient Tobacco Use Status: Never used Tobacco Allergies morphine [MORPHINE] Adverse Reaction (Intermediate, Verified 02/19/25 10:45) VOMITING oxycodone [OXYCODONE] Adverse Reaction (Intermediate, Verified 02/19/25 10:45) VOMITING Opioids - Morphine Analogues Adverse Reaction (Verified 02/19/25 10:45) Vomiting HPI HPI Comments 2 History of Present Illness0 Details 75 y/o Female patient who presents to [facility] walk in clinic asking to have her Wound looked up. Pt had a Cyst removed by Dermatology (Dr. Oates) Saturday and had stitches placed. Pt reports Burning, itching and redness at the wound, and worried it might be infected. Pt was given Mupirocin Abx topical to Apply on the wound BID after dressing changes. Denies Fevers, chills or Pain. [facility] Medical History (Updated 02/19/25 @ 11:45 by Hallie Yap NP) Visit for wound check Overweight (BMI 25.0-29.9) Cerumen impaction Annual physical exam History of mammogram (~05/21/24) Abdominal pain Abdominal bloating Anemia Diplopia Uterine prolapse Fibrocystic breast disease Back pain Arthritis Hiatal hernia Numbness Acid reflux Surgical History H/O colonoscopy (~05/14/18) History of hip surgery History of hip replacement Hx of tubal ligation H/O: hysterectomy History of bladder surgery Family History Mother Breast cancer HTN (hypertension) Maternal Aunt Breast cancer Son Diabetes Social History Household Members: None Housing: Apartment Are you a primary career services representative to a significant other at home: No Do you presently have visiting nurse or other home services: No Alcohol intake: never Patient Tobacco Use Status: Never used Tobacco service: No Current occupational status: employed 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 Clean wound, stitches intact, visible Abx cream covering the wound. No drainage and non Tender to touch. No infection. Neuro General: patient oriented x3, gait normal and moves all extremities Psych Speech and movement: Normal speech and movement present Assessment & Plan Assessment & Plan (1) Visit for wound check: Code(s): Z51.89 - Encounter for other specified aftercare Plan: Assured Patient that the wound was not infected. Continue cleaning it and applying Topical Abx as directed. F/U with Dermatology with further concerns. Coding Level of Care Code Est Pt Level 4 (81608) Diagnoses Visit for wound check Z51.89 Time Spent (min) 20
--- OUTSIDE RECORDS SUMMARY | 2025-02-19 11:13 | XMS_ITS | Encounter Summary ---
Author Organization [employer] Address [address] [facility] 7t [place] [address] Care Team Providers Care Airborne Operations Superintendent Name Role Phone Unavailable Primary Care Provider Unavailabl e Encounter Details Date Type Department Care Team (Late st Contact Info) Description 10/04/2022 Abstract [facility] ADULT DENTAL [address] [place] [address] Dental, Provider, DDS Social History Tobacco Use [...]
--- OUTSIDE RECORDS SUMMARY | 2025-02-19 11:13 | XMS_ITS | Encounter Summary ---
Author Organization [employer] Address [address] [facility] 7t [place] [address] Care Team Providers Care Slubber Operator Name Role Phone Unavailable Primary Care Provider Unavailabl e Reason for Visit * Reason Onset Date Comments Appointment 03/11/2023 Encounter Details Date Type Department Care Team ([facility] st Contact Info) Description 03/11/2023 Telephone [facility] ADULT DENTAL [address] [place] [address] Maria Guadalupe Goldstein DDS Appointment Social History [...]
--- OUTSIDE RECORDS SUMMARY | 2025-02-19 11:13 | XMS_ITS | Encounter Summary ---
Author Organization [employer] Address [address] [facility] 7t [place] [address] Care Team Providers Care Electronics Assembler And Tester Name Role Phone Unavailable Primary Care Provider Unavailabl e Encounter Details Date Type Department Care Team (Late st Contact Info) Description 10/09/2022 Abstract [facility] CHC ADULT DENTAL [address] [place] [address] Dental, Provider, DDS Social History Tobacco Use [...]
--- OUTSIDE RECORDS SUMMARY | 2025-02-19 11:13 | XMS_ITS | Clinical Summary ---
Author Organization [employer] Address [address] [place] [address] 7t [place] [address] Care Team Providers Care Chuck Splitter Name Role Phone Unavailable Primary Care Provider [...] Maintenance Insurance DENTAL - HSN FULL (MEDICAID) DENTAL - HSN FULL (MEDICAID)
--- OUTSIDE RECORDS SUMMARY | 2025-02-19 11:13 | XMS_ITS | Encounter Summary ---
Author Organization [employer] Address [address] [place] [address] 7 [place] [address] Care Team Providers Care Casino Enforcement Agent Name Role Phone Unavailable Primary Care Provider Unavailabl e Encounter Details Date Type Department Care Team (Latest Contact Info) Description 09/13/2021 Abstract [facility] CONVERSIONS Dental, Provider, DDS Social History Tobacco [...]
--- OUTSIDE RECORDS SUMMARY | 2025-02-19 11:13 | XMS_ITS | Encounter Summary ---
Author Organization [employer] Address [address] [facility] 7t [place] [address] Care Team Providers Care Green Belt Name Role Phone Unavailable Primary Care Provider Unavailabl e Encounter Details Date Type Department Care Team (Late st Contact Info) Description 03/04/2023 Abstract [facility] CHC ADULT DENTAL [address] [place] [address] Maria Guadalupe Goldstein DDS Social History Tobacco [...]
== END 2025-02-19 12:10 | disposition home or self-care (01) ==
PROVIDERS: PCP Internal Medicine; Visit Provider Nurse Practitioner Family
DX: Z51.89 Encounter for other specified aftercare (principal)

== ENCOUNTER → 2025-02-19 10:19 | Outpatient (BNVA) | payer MEDICARE, SELFPAY | PROVIDERS: PCP Internal Medicine; Visit Provider Nurse Practitioner Family | DX: Z51.89 Encounter for other specified aftercare (principal); Z48.00 Encounter for change or removal of nonsurgical wound dressing | CPT/HCPCS: 99212 ==

== ENCOUNTER 2025-04-14 16:26 | Outpatient (AMB) | payer MEDICARE, MEDICAID, SELFPAY ==
--- NOTE | 2025-04-14 16:08 | A.OFFPC_ITS ---
Intake Visit Reasons: Migraine headache X4 days Senior Php Developer Required: No Allergies morphine [MORPHINE] Adverse Reaction (Intermediate, Verified 04/14/25 16:38) VOMITING oxycodone [OXYCODONE] Adverse Reaction (Intermediate, Verified 04/14/25 16:38) VOMITING Opioids - Morphine Analogues Adverse Reaction (Verified 04/14/25 16:38) Vomiting Medication List - Last Reconciled 04/14/25 by Rasheeda Brar PA-C meclizine 25 mg PO TID metoclopramide HCl (Reglan) 10 mg PO TID omeprazole magnesium (Prilosec OTC) 20 mg PO DAILY Tobacco use date assessed: 04/14/25 Fall risk assessment: No Falls in past year Last assessed Fall Risk: 04/14/25 Dental Screening Dental Screen Date: 04/14/25 Did you have a dental visit in the last 12 months?: No Did you have a dental problem in the last 6 months where you did not have access to dental care?: No Was dental information given to patient?: Patient has dentist HPI Migraine headache X4 days HPI Details The patient is a 75-year-old female presenting with migraines associated with motion sickness. She has a long history of migraines which have been absent for 25 years, managed previously with vitamin B complex. Recently, after traveling by car, she experienced a resurgence of migraines and associated symptoms like nausea. Previous medication trials with Tylenol were ineffective, and Excedrin provided modest relief. She reports sensitivity to medications like dramamine and previously overdosed on motion sickness patches, causing adverse reactions. Her current management includes hydration, electrolytes, cold compresses, and caffeine-containing medications, although dizziness and lightheadedness persist. Past experiences with gabapentin were negative, furthering concern over medication sensitivity. The patient is seeking alternative treatments for better symptom management considering her upcoming travel plans. [facility] Medical History (Updated 04/14/25 @ 17:10 by Rasheeda Brar PA-C) Motion sickness Migraine headache Visit for wound check Overweight (BMI 25.0-29.9) Cerumen impaction Annual physical exam History of mammogram (~05/21/24) Abdominal pain Abdominal bloating Anemia Diplopia Uterine prolapse Fibrocystic breast disease Back pain Arthritis Hiatal hernia Numbness Acid reflux Surgical History H/O colonoscopy (~05/14/18) History of hip surgery History of hip replacement Hx of tubal ligation H/O: hysterectomy History of bladder surgery Family History Mother Breast cancer HTN (hypertension) Maternal Aunt Breast cancer Son Diabetes Social History Household Members: None Housing: Apartment Are you a primary day care worker to a significant other at home: No Do you presently have visiting nurse or other home services: No Alcohol intake: never Patient Tobacco Use Status: Never used Tobacco service: No Current occupational status: employed 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 Sexual orientation: Straight/Heterosexual Gender identity: Female Cognitive needs: No Hearing needs: No Vision needs: Yes (reading glasses) Questionnaire Thrive Questionnaire Date Thrive assessed: 04/14/25 I am a: Patient What is your living situation today?: I have a steady place to live Within the past 12 months, did the food you bought not last and you didn't have the money to get more?: Never true Within the past 12 months, did you worry whether your food would run out before you got money to buy more?: Never true Do you have trouble paying for medicines?: No Do you have trouble getting transportation to medical appointments?: No Do you have trouble paying your heating and electricity bill?: No Do you have trouble taking care of your child, family member or friend?: No Do you have trouble with day-to-day activities such as bathing, preparing meals, shopping, managing finances, etc.?: No Are you currently unemployed and looking for a job?: No Are you interested in more education?: No Please select the resources that you would like help with: None THRIVE Score: 0 AUDIT C Alcohol Use Questionnaire (AUDIT-C) 1. How often do you have a drink containing alcohol?: Never 3. How often do you have six or more drinks on one occasion?: Never Total Score: 0 Score Reviewed/Action Taken: No YESI-7 AMB Questionnaire YESI-7 Date YESI - 7 assessed: 04/14/25 Feeling nervous, anxious, or on edge: 0 = Not at all Not being able to stop or control worryin = Not at all Worrying too much about different things: 0 = Not at all Trouble relaxin = Not at all Being so restless that it is hard to sit still: 0 = Not at all Becoming easily annoyed or irritable: 0 = Not at all Feeling afraid as if something awful might happen: 0 = Not at all Total YESI-7 score (0-4 normal; 5-9 mild; 10-14 moderate; 15-21 severe): 0 Source: Developed by Drs. Hemal Thrasher, Ute Perry, Nick Sol and colleagues, with an educational sarah from [employer]. YESI-7 Assessment Billing YESI-7 Assessment Tool: YESI-7 Assessment 17289 Review of Systems Const Details: - Neurological: Reports migraines, dizziness, lightheadedness, sensitivity to medications. - Gastrointestinal: Reports nausea during migraines, history of motion sickness. - Musculoskeletal: Reports previous hip pain managed with gabapentin. - Other: Denies weakness, confusion, drooling, or difficulty swallowing. Physical exam (Primary Care) Tobacco/Smoking Status: Tobacco use Status Tobacco use date assessed 04/14/25 04/14/25 16:14 Patient Tobacco Use Status Never used Tobacco 04/14/25 16:14 Thrive Assessment: Date of Thrive Assessment Date Thrive assessed 04/14/25 04/14/25 16:14 Telehealth Telehealth Telehealth Platform: Telephone Location of provider rendering services: practice address Location of patient: address on file Patient Identification confirmed using: Name, : Yes Telehealth method: voice only Patient verbally consented to treatment: Yes Patient verbally consented to billing insurance company: Yes Patient informed of any privacy concerns related to visit: Yes Minutes spent on Phone/Video with Pt.: 20 Coding Level of Care Code Tele Est Pt Level 4 (78116) Complex EM visit Add On G2211 Diagnoses Migraine headache G43.909 Motion sickness T75.3XXA Additional Codes YESI-7 Assessment Billing - YESI-7 Assessment Tool: YESI-7 Assessment 25647 ([id number]) Assessment & Plan Assessment & Plan (1) Migraine headache: Code(s): G43.909 - Migraine, unspecified, not intractable, without status migrainosus Category: Medical Plan: Prescribed meclizine to manage migraines, advising a gradual approach to dosage for efficacy without exacerbating sedation. Provided Reglan for nausea associated with migraines, emphasizing patient's historical medication sensitivities. Condition is chronic and stable continue to monitor. (2) Motion sickness: Code(s): T75.3XXA - Motion sickness, initial encounter Category: Medical Plan: Meclizine recommended for reducing nausea and dizziness related to motion sickness. Monitored hydration levels and identified avoidances to mitigate symptom severity during travel with patient awareness of her sensitivity history. Condition is chronic and stable will continue to monitor. Plan Plan Patient was informed and verbally consented to the use of an ambient scribe for clinic note documentation during this visit. 1. Migraine Prescribed meclizine to manage vestibular migraines, advising a gradual approach to dosage for efficacy without exacerbating sedation. Provided Reglan for nausea associated with migraines, emphasizing patient's historical medication sensitivities. 2. Motion Sickness Meclizine recommended for reducing nausea and dizziness related to motion sickness. Monitored hydration levels and identified avoidances to mitigate symptom severity during travel with patient awareness of her sensitivity history. During this telehealth visit, I discussed with the patient the primary diagnosis of migraines likely triggered by motion sickness. We explored alternative medications suitable given her sensitivity, emphasizing the potential usage of meclizine for mitigating her symptoms. The patient was informed about taking meclizine, highlighting that minimal doses may help without inducing sedation, aligning with her previous medication responses. I counseled her on using Reglan to address nausea during migraines. Consent and understanding were confirmed as the patient was made aware of potential side effects and dosage adjustments. Follow-up was advised should symptoms persist or worsen, especially with her upcoming travel plans indicating the need for medical responsiveness to symptom fluctuation. Medications: New metoclopramide HCl (Reglan) 10 mg PO TID 90 tabs 1RF nausea and vomiting meclizine 25 mg PO TID 90 tabs 1RF motion sickness Patient Instructions: - Take meclizine as prescribed for dizziness and motion sickness. Avoid driving if experiencing drowsiness. - Use Reglan for nausea if needed. - Drink plenty of water and stay hydrated. - Use cold compresses to manage headache symptoms. - Monitor symptoms, and consult if symptoms persist or worsen. - Avoid overuse of medications due to sensitivity. - Return for follow-up if necessary, especially with new or worsening symptoms.
--- OUTSIDE RECORDS SUMMARY | 2025-04-14 18:19 | XMS_ITS | Encounter Summary ---
Author Organization [employer] Address [address] [facility] 7t [place] [address] Care Team Providers Care Relay Man Name Role Phone Unavailable Primary Care Provider Unavailabl e Encounter Details Date Type Department Care Team (Late st Contact Info) Description 10/09/2022 Abstract [facility] ADULT DENTAL [address] [place] [address] Dental, Provider, DDS Social History Tobacco Use [...]
== END 2025-04-14 18:00 | disposition home or self-care (01) ==
LOC: HO.HMCSH 16:26
PROVIDERS: PCP Internal Medicine; Visit Provider Physician Assistant Medical
DX: G43.909 Migraine, unspecified, not intractable, without status migrainosus (principal); T75.3XXA Motion sickness, initial encounter

== ENCOUNTER → 2025-04-14 16:26 | Outpatient (BNVA) | payer MEDICARE, MEDICAID, SELFPAY | PROVIDERS: PCP Internal Medicine; Visit Provider Physician Assistant Medical | DX: G43.909 Migraine, unspecified, not intractable, without status migrainosus (principal); T75.3XXD Motion sickness, subsequent encounter | CPT/HCPCS: 96127 ==

== ENCOUNTER 2025-05-27 07:30 | Outpatient (REF) | payer MEDICARE, MEDICAID, SELFPAY | END 2025-05-27 07:31 | disposition home or self-care (01) | LOC: HO.MAMMO 07:30 | PROVIDERS: PCP Physician Assistant Medical; Visit Provider Physician Assistant Medical | DX: Z12.31 Encounter for screening mammogram for malignant neoplasm of breast (principal) | CPT/HCPCS: 77063; 77067 ==

== ENCOUNTER → 2025-05-27 07:45 | Outpatient (BNV) | payer MEDICARE, MEDICAID, SELFPAY | PROVIDERS: PCP Physician Assistant Medical; Visit Provider Radiology Body Imaging | DX: Z12.31 Encounter for screening mammogram for malignant neoplasm of breast (principal) | CPT/HCPCS: 77063; 77067 ==